=== PATIENT | female | born 1955 | race African-American/Black ===

== ENCOUNTER → 2016-07-19 | Outpatient (CLI) | payer MEDICAID | LOC: OD 12:27 | PROVIDERS: ATTEND Family Medicine | DX: M51.37 Other intervertebral disc degeneration, lumbosacral region (principal) | CPT/HCPCS: 72110 ==

== ENCOUNTER 2016-07-30 08:00 | Emergency (ER) | payer MEDICAID ==
[2016-07-30 11:46] VITALS: BP 144/79
--- NOTE | 2016-07-30 11:49 | ER Document Report ---
ED Extremity Problem, Upper - General Chief Complaint: Shoulder Pain Stated Complaint: RIGHT SIDE BODY PAIN Mode of Arrival: Ambulatory Information source: Patient Notes: 60 y/o F presents to ED c/o intermittently persistent pain to right arm over the last month. Pt reports paint to right shoulder and right upper arm which is worse with movement of shoulder and arm and she states radiates down the whole right side of her body. Denies obvious trauma or injury, chest pain or sob, n/v , diaphoresis, or extremity weakness/numbness/tingling. TRAVEL OUTSIDE OF THE [place] IN LAST 30 DAYS: No - HPI Patient complains to provider of: Pain, Right, Arm, Shoulder Recent injury: No Quality of pain: Achy, Sharp Severity of pain: Moderate Pain Level: 2 Associated symptoms: None Exacerbated by: Movement Relieved by: Positioning Similar symptoms previously: Yes Recently seen / treated by doctor: No - Related Data Allergies/Adverse Reactions: No Known Allergies Allergy (Verified 07/30/16 08:01) Past Medical History - General Information source: Patient - Social History Smoking Status: Never Smoker Chew tobacco use (# tins/day): No Frequency of alcohol use: sober for 7 yrs Drug Abuse: None Lives with: Family Family History: None, Reviewed & Not Pertinent Patient has suicidal ideation: No Patient has homicidal ideation: No - Past Medical History Cardiac Medical History: Reports: Hx Hypertension Pulmonary Medical History: Reports: Hx Asthma, Hx Bronchitis Endocrine Medical History: Reports: Hx Diabetes Mellitus Type 2 Renal/ Medical History: Denies: Hx Peritoneal Dialysis GI Medical History: Reports: Hx Cirrhosis, Hx Hepatitis - hep c Musculoskeltal Medical History: Reports Hx Arthritis Infectious Medical History: Reports: Hx Hepatitis - hep c Past Surgical History: Reports: Hx Hysterectomy - Immunizations Hx Diphtheria, Pertussis, Tetanus Vaccination: Yes Review of Systems - Review of Systems Constitutional: No symptoms reported EENT: No symptoms reported Cardiovascular: No symptoms reported Respiratory: No symptoms reported Gastrointestinal: No symptoms reported Genitourinary: No symptoms reported Female Genitourinary: No symptoms reported Musculoskeletal: See HPI Skin: No symptoms reported Hematologic/Lymphatic: No symptoms reported Neurological/Psychological: No symptoms reported -: Yes All other systems reviewed and negative Physical Exam - Vital signs Vitals: Temp Pulse Resp BP Pulse Ox 98.2 F 66 20 143/92 H 100 07/30/16 08:05 07/30/16 08:05 07/30/16 08:05 07/30/16 08:05 07/30/16 08:05 - General General appearance: Appears well, Alert In distress: None - HEENT Head: Normocephalic, Atraumatic Eyes: Normal Pupils: PERRL - Respiratory Respiratory status: No respiratory distress Chest status: Nontender Breath sounds: Normal Chest palpation: Normal - Cardiovascular Rhythm: Regular Heart sounds: Normal auscultation Murmur: No Pulses: Normal: Radial, Posterior tibial, Dorsalis pedis Normal capillary refill: Yes - Abdominal Inspection: Normal Distension: No distension Bowel sounds: Normal Tenderness: Nontender Organomegaly: No organomegaly - Back Back: Normal, Nontender - Extremities General upper extremity: Normal inspection, Nontender, Normal color, Normal ROM , Normal strength, Normal temperature. No: Edema General lower extremity: Normal inspection, Nontender, Normal color, Normal ROM , Normal strength, Normal temperature, Normal weight bearing. No: Edema, Ila' s sign Shoulder: Tender - Patient has diffuse tenderness with palpation to right shoulder and upper arm. Also reports painful range of motion. There is no swelling, erythema, bruising, discoloration, or crepitus. Patient has full active, passive, and against resistance range of motion of right arm and neurovascular function intact with immediate capillary refill and distal sensation intact.. No: Dislocation, Ecchymosis, Instability, Limited ROM Arm: Tender. No: Deformity, Ecchymosis, Instability Elbow: Normal, Nontender Forearm: Normal, Nontender Wrist: Normal, Nontender Hand: Normal, Nontender Hip: Normal, Nontender Thigh: Normal, Nontender Knee: Normal, Nontender Calf: Normal, Nontender Ankle: Normal, Nontender Foot: Normal, Nontender - Neurological Neuro grossly intact: Yes Cognition: Normal Orientation: AAOx4 [place] Coma Scale Eye Opening: Spontaneous [place] Coma Scale Verbal: Oriented [place] Coma Scale Motor: Obeys Commands [place] Coma Scale Total: 15 Speech: Normal Cranial nerves: Normal Cerebellar coordination: Normal Motor strength normal: LUE, RUE, LLE, RLE 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 Neurologically intact and physical exam aside from subjective tenderness is unremarkable. Patient winced initially with palpation and demonstrated painful range of motion however during examination while speaking with the patient she fixed her blankets with her right arm with full range of motion and did not complain of pain. No suggestion of neurovascular, cardiovascular, or other emergent etiology at this time. Patient appears stable for discharge and agrees with home care, follow-up with PCP, and ED return precautions. - Vital Signs Vital signs: Temp Pulse Resp BP Pulse Ox 98.0 F 60 20 144/79 H 100 07/30/16 11:44 07/30/16 11:44 07/30/16 11:44 07/30/16 11:44 07/30/16 11:44 - Diagnostic Test Radiology reviewed: Image reviewed, Reports reviewed Discharge - Discharge Clinical Impression: Right arm pain Condition: Stable Disposition: HOME, SELF-CARE Instructions: Arm Pain, Nonspecific ([facility]), Anti-Inflammatory Medication ([facility]) Additional Instructions: Follow-up with your primary care provider tomorrow. Return to the emergency department for any worsening symptoms or concerns. Prescriptions: Naproxen [Naprosyn 375 Mg Tablet] 375 mg PO BIDP PRN #10 tablet PRN Reason: Referrals: STEPHANIE MARTINEZ DO [Primary Care Provider] - Follow up tomorrow
== END 2016-07-30 11:56 | disposition home or self-care (01) ==
LOC: ER 08:00
DX: M79.601 Pain in right arm (principal); M25.511 Pain in right shoulder; I10 Essential (primary) hypertension; J45.909 Unspecified asthma, uncomplicated; E11.9 Type 2 diabetes mellitus without complications; Z86.19 Personal history of other infectious and parasitic diseases; Z90.710 Acquired absence of both cervix and uterus
CPT/HCPCS: 99283

== ENCOUNTER 2016-09-06 07:07 | Inpatient (IN) | payer MEDICAID ==
[2016-09-06] MEDS ORDERED: ONDANSETRON HCL INJ/PF 4 MG/2 ML SDV IV ONE (07:45)
[2016-09-06] MEDS ORDERED: MORPHINE SULFATE 10 MG/ML INJ IV ONE (07:45)
--- NOTE | 2016-09-06 07:55 | ER Document Report ---
ED General - General Mode of Arrival: Wheelchair Information source: Patient TRAVEL OUTSIDE OF THE [place] IN LAST 30 DAYS: No - HPI Onset: Other - 2 months Onset/Duration: Persistent Quality of pain: Achy Severity: Severe Pain Level: 5 Associated symptoms: Diarrhea, Vomiting Exacerbated by: Denies Relieved by: Denies Similar symptoms previously: Yes Recently seen / treated by doctor: Yes <MIRIAM GARCIA - Last Filed: 09/06/16 15:24> <JACE ABEL - Last Filed: 09/08/16 10:18> - General Chief Complaint: Abdominal Pain Stated Complaint: FLANK PAIN Time Seen by Provider: 09/06/16 07:28 Notes: Patient presents to emergency department with complaints of generalized abdominal pain for the past 2 months. She reports she has gallstones and is under the care of a surgeon but no surgery is scheduled. She reports she has another appointment September 13. Patient reports she has been vomiting and having diarrhea. Reports decreased appetite because she doesn't want to hurt. She reports she has not had anything to eat since noon yesterday due to the abdominal pain. She also reports both her arms are hurting and pain with void. Denies fever. Reports she hasn't been able to work for 2 months due to the pain. Reports history of diabetes asthma hypertension cirrhosis and hep C. ( MIRIAM GARCIA) - Related Data Allergies/Adverse Reactions: No Known Allergies Allergy (Verified 07/30/16 08:01) Past Medical History - General Information source: Patient Last Menstrual Period: hyst - Social History Smoking Status: Unknown if Ever Smoked Cigarette use (# per day): No Frequency of alcohol use: quit 5 years ago Drug Abuse: None Occupation: [employer] Lives with: Family - son Family History: None, Reviewed & Not Pertinent Patient has suicidal ideation: No Patient has homicidal ideation: No - Past Medical History Cardiac Medical History: Reports: Hx Hypertension Pulmonary Medical History: Reports: Hx Asthma, Hx Bronchitis Endocrine Medical History: Reports: Hx Diabetes Mellitus Type 2 Renal/ Medical History: Denies: Hx Peritoneal Dialysis GI Medical History: Reports: Hx Cirrhosis, Hx Hepatitis - hep c Musculoskeltal Medical History: Reports Hx Arthritis Infectious Medical History: Reports: Hx Hepatitis - hep c Past Surgical History: Reports: Hx Hysterectomy - Immunizations Hx Diphtheria, Pertussis, Tetanus Vaccination: Yes <MIRIAM GARCIA - Last Filed: 09/06/16 15:24> Review of Systems <MAURIZIO GARCIARICIA - Last Filed: 09/06/16 15:24> <DANGJACE - Last Filed: 09/08/16 10:18> - Review of Systems Notes: Review HPI for review of systems., All other systems negative (MIRIAM GARCIA) Physical Exam <MAURIZIO GARCIARICIA - Last Filed: 09/06/16 15:24> <JACE ABEL - Last Filed: 09/08/16 10:18> - Vital signs Vitals: Temp Pulse Resp BP Pulse Ox 98 F 95 18 166/107 H 99 09/06/16 07:22 09/06/16 07:22 09/06/16 07:22 09/06/16 07:22 09/06/16 07:22 - Notes Notes: PHYSICAL EXAMINATION: GENERAL: no acute distress HEAD: Atraumatic, normocephalic. EYES: Pupils equal round, extraocular movements intact, sclera anicteric, conjunctiva are normal. ENT: nares patent, oropharynx clear without exudates. Moist mucous membranes. NECK: Normal range of motion, supple without lymphadenopathy LUNGS: CTAB and equal. No wheezes rales or rhonchi. HEART: Regular rate and rhythm without murmurs ABDOMEN: Soft, round, no fluid wave, generalized tenderness, reports increased pain to RUQ, epigastric area. No guarding, no rebound BACK: Denies pain EXTREMITIES: Normal range of motion, no pitting edema. No cyanosis. NEUROLOGICAL: Cranial nerves grossly intact. Normal sensory/motor exams. PSYCH: Normal mood, normal affect. SKIN: Warm, Dry, normal turgor, no rashes or lesions noted (MIRIAM GARCIA) Course - Laboratory Result Diagrams: 09/06/16 08:00 09/06/16 08:00 - Diagnostic Test Radiology reviewed: Image reviewed, Reports reviewed - CT/CT ABD/PELVIS WITH IV ORAL IMPRESSION: Multiple gallstones. A small umbilical hernia is identified containing bowel without obstruction. Other findings as noted above US/U/S ABDOMEN COMPLETE W/O DOP IMPRESSION: 1. Cholelithiasis without acute cholecystitis. 2. Otherwise unremarkable abdominal ultrasound - Consults suhr Time consulted: :52 Consulted provider: will come to ER <MIRIAM GARCIA - Last Filed: 09/06/16 15:24> - Laboratory Result Diagrams: 09/07/16 15:35 09/07/16 15:35 <JACE ABEL - Last Filed: 09/08/16 10:18> - Re-evaluation Re-evalutation: 09/06/16 09:45 Per [facility] guidelines consulted dr abel regarding pt c/o,labs, hx and US. Advised to consult surgery, dr lee contacted. Pt remains NPO. no c/o at this time. 09/06/16 10:00 Dr Lee in the ED requested CT oral/iv contrast 09/06/16 14:[address] Lee contacted with CT results, he came to reassess the patient. Pt to be admitted for pancreatitis. 09/06/16 14:45 Pt aware of admission, denies questions. (MIRIAM GARCIA) - Vital Signs Vital signs: Temp Pulse Resp BP Pulse Ox 98.4 F 91 16 166/93 H 95 09/08/16 07:36 09/08/16 07:37 09/08/16 07:36 09/08/16 07:37 09/08/16 07:36 - Laboratory Laboratory results interpreted by nh: 09/06/16 09/06/16 09/06/16 08:00 08:00 08:00 MCH 26.9 L Sodium 145.5 H Calcium 10.8 H Total Protein 8.4 H Lipase 386.0 H Urine Protein 100 H - Consults [facility] Reason for consultation: 09/06/16 09:52 abdominal pain, hx gallstones, currently under care of [facility] for evaluation (MIRIAM GARCIA) Discharge - Discharge Admitting Provider: Surgicalist - [facility] Unit Admitted: Surgical Floor <MIRIAM GARCIA - Last Filed: 09/06/16 15:24> <JACE ABEL - Last Filed: 09/08/16 10:18> - Discharge Clinical Impression: Abdominal pain Qualifiers: Abdominal location: right upper quadrant Qualified Code(s): R10.11 - Right upper quadrant pain Pancreatitis Qualifiers: Chronicity: acute Pancreatitis type: unspecified pancreatitis type Acute pancreatitis complication: unspecified Qualified Code(s): K85.90 - Acute pancreatitis without necrosis or infection, unspecified
[2016-09-06 08:23] LABS: ABSOLUTE EOSINOPHILS # (AUTO) 0.2 10^3/uL (0.0-0.6); ABSOLUTE LYMPHOCYTES (AUTO) 1.7 10^3/uL (0.5-4.7); ABSOLUTE MONOCYTES (AUTO) 0.4 10^3/uL (0.1-1.4); ABSOLUTE NEUT (AUTO) 2.9 10^3/uL (1.7-8.2); BASOPHILS % (AUTO) 0.4 % (0-2); EOSINOPHILS % (AUTO) 3.1 % (0-6); HEMATOCRIT 36.5 % (36.0-47.0); HEMOGLOBIN 12.3 g/dL (12.0-15.5); HGB HCT DIFFERENCE 0.4; LYMPHOCYTES % (AUTO) 33.1 % (13-45); MEAN CORPUSCULAR HEMOGLOBIN 26.9 pg (27.0-33.4); MEAN CORPUSCULAR HGB CONC 33.8 g/dL (32.0-36.0); MEAN CORPUSCULAR VOLUME 80 fl (80-97); MONOCYTES % (AUTO) 7.2 % (3-13); RED BLOOD COUNT 4.59 10^6/uL (3.72-5.28); RED CELL DISTRIBUTION WIDTH 12.7 % (11.5-14.0); SEGMENTED NEUTROPHILS % (AUTO) 56.2 % (42-78); WHITE BLOOD COUNT 5.2 10^3/uL (4.0-10.5)
[2016-09-06 08:37] LABS: ALANINE AMINOTRANSFERASE 35 U/L (9-52); ALBUMIN 4.8 g/dL (3.5-5.0); ALKALINE PHOSPHATASE 98 U/L (38-126); ANION GAP 14 (5-19); ASPARTATE AMINO TRANSFERASE 36 U/L (14-36); BILIRUBIN,DIRECT 0.4 mg/dL (0.0-0.4); BILIRUBIN,TOTAL 0.7 mg/dL (0.2-1.3); BLOOD UREA NITROGEN 7 mg/dL (7-20); CALCIUM 10.8 mg/dL (8.4-10.2); CARBON DIOXIDE 27 mmol/L (22-30); CHLORIDE 105 mmol/L (98-107); CREATININE RESULT 0.63 mg/dL (0.52-1.25); GLUCOSE 91 mg/dL (75-110); POTASSIUM 3.7 mmol/L (3.6-5.0); SODIUM 145.5 mmol/L (137-145); TOTAL PROTEIN 8.4 g/dL (6.3-8.2)
[2016-09-06 08:55] LABS: AMORPHOUS SEDIMENT,URINE TRACE /HPF; APPEARANCE,URINE CLOUDY; BILIRUBIN,URINE NEGATIVE (NEGATIVE); GLUCOSE, URINE NEGATIVE (NEGATIVE); KETONES,URINE NEGATIVE (NEGATIVE); LEUKOCYTE ESTERASE,URINE NEGATIVE (NEGATIVE); NITRITE,URINE NEGATIVE (NEGATIVE); PROTEIN,URINE 100 mg/dL (NEGATIVE); URINE SPECIFIC GRAVITY 1.014; UROBILINOGEN,URINE NEGATIVE mg/dL (<2.0)
--- NOTE | 2016-09-06 10:36 | EKG REPORT ---
SEVERITY:- ABNORMAL ECG - SINUS RHYTHM PROBABLE LEFT ATRIAL ABNORMALITY LEFT VENTRICULAR HYPERTROPHY : Confirmed by: Shaniqua Jacobsen MD 06-Sep-2016 10:35:41
[2016-09-06 11:01] LABS: PROTHROMBIN TIME 13.8 SEC (11.4-15.4)
[2016-09-06 11:02] LABS: PARTIAL THROMBOPLASTIN TIME 35.2 SEC (23.5-35.8)
[2016-09-06] MEDS ORDERED: ONDANSETRON 4 MG TAB.RAPDIS PO PRN (14:38)
[2016-09-06] MEDS: NORMAL SALINE 1000 ML 1,000 ML IV PRN (15:29)
[2016-09-06] MEDS ORDERED: ENOXAPARIN SODIUM INJ 40 MG/0.4 ML DISP.SYRIN SUBCUT ONE (15:30)
[2016-09-06] MEDS ORDERED: VALSARTAN 160 MG TABLET PO ONE (21:45)
[2016-09-06] MEDS: FAMOTIDINE 20 MG TABLET PO SCH (21:58)
[2016-09-06] MEDS: HYDROMORPHONE HCL INJ/PF 2 MG/ML AMPULE IV PRN (23:56)
[2016-09-07] MEDS: NORMAL SALINE 1000 ML 1,000 ML IV PRN (03:46)
[2016-09-07] MEDS ORDERED: METOCLOPRAMIDE HCL INJ/PF 10 MG/2 ML SDV ONE (07:50)
[2016-09-07] MEDS ORDERED: ROCURONIUM BROMIDE INJ 50 MG/5 ML VIAL IV ONE (07:50)
[2016-09-07] MEDS ORDERED: GLYCOPYRROLATE INJ 0.4 MG/2 ML VIAL ONE (07:50)
[2016-09-07] MEDS ORDERED: SUCCINYLCHOLINE CHLORIDE INJ 200 MG/10 ML VIAL ONE (07:50)
[2016-09-07] MEDS ORDERED: LIDOCAINE 2% INJ-PF (20 MG/ML) 10 ML AMPUL ONE (07:50)
[2016-09-07] MEDS ORDERED: ONDANSETRON HCL INJ/PF 4 MG/2 ML SDV ONE (07:50)
[2016-09-07] MEDS ORDERED: NEOSTIGMINE METHYLSULFATE 10 MG/10 ML VIAL ONE (07:50)
[2016-09-07] MEDS ORDERED: ENOXAPARIN SODIUM INJ 40 MG/0.4 ML DISP.SYRIN SUBCUT SCH (08:00)
[2016-09-07] MEDS: FAMOTIDINE 20 MG TABLET PO SCH ×2 (09:24→21:31)
[2016-09-07] MEDS: HYDROMORPHONE HCL INJ/PF 2 MG/ML AMPULE IV PRN (09:24)
[2016-09-07] MEDS ORDERED: VALSARTAN 160 MG TABLET PO SCH (10:00)
[2016-09-07] MEDS ORDERED: BUPIVACAINE HCL 0.25 % INJ/PF (2.5 MG/1 ML) 30 ML VIAL ONE (10:27)
[2016-09-07] MEDS ORDERED: MIDAZOLAM 2 MG/2 ML INJ ONE (10:43)
[2016-09-07] MEDS ORDERED: FENTANYL CITRATE INJ/PF 250 MCG/5 ML AMPULE ONE (10:43)
[2016-09-07] MEDS ORDERED: PROPOFOL INJ 200 MG/20 ML VIAL IV ONE (10:44)
[2016-09-07] MEDS ORDERED: ACETAMINOPHEN 100 ML IV ONE (10:44)
[2016-09-07] MEDS ORDERED: MORPHINE SULFATE 10 MG/ML INJ ONE (10:44)
[2016-09-07] MEDS ORDERED: CEFAZOLIN INJ 1 GM VIAL ONE (11:25)
[2016-09-07] MEDS ORDERED: MORPHINE SULFATE 10 MG/ML INJ IV PRN (13:06)
[2016-09-07] MEDS ORDERED: ONDANSETRON HCL INJ/PF 4 MG/2 ML SDV IV PRN (13:10)
--- NOTE | 2016-09-07 13:13 | OPERATIVE REPORT E ---
Operative Report NAME: SIS REYES : 1955 AGE: 61Y DATE OF SURGERY: 09/07/2016 ROOM: 210 PREOPERATIVE DIAGNOSES: 1. Chronic calculus cholecystitis. 2. Gallstone pancreatitis. POSTOPERATIVE DIAGNOSES: 1. Chronic calculus cholecystitis. 2. Gallstone pancreatitis. PROCEDURE: Laparoscopic cholecystectomy. SURGEON: JULISA MIRANDA M.D. ANESTHESIA: General. INDICATION: This is a 61-year-old female who was noted to complain of severe abdominal pains. In the emergency room, her lipase was elevated, but the rest of liver functions were normal. Today, her pain subsided and her lipase decreased. Her abdomen is soft and nontender. She is going to have a laparoscopic cholecystectomy today. DESCRIPTION OF PROCEDURE: After adequate general anesthesia, the abdomen was then prepped and draped in the usual sterile fashion. After adequate timeout, the abdomen was then prepped and draped in the usual sterile fashion. Infraumbilical incision made and the fascia identified and grasped with Elías clamps and divided between the Elías clamps. The peritoneal cavity was then entered with a hemostat and a Britney trocar inserted through the fascia and into the abdominal cavity and CO2 insufflated through the trocar up a pressure of 15 mmHg. Three other trocars were placed; a 12 mm in the subxiphoid, and two 5 mm in the right upper quadrant. They were placed under direct vision. Next, the gallbladder was then identified. There were some adhesions around the gallbladder. These were lysed with the use of harmonic jaden. The liver was noted to be cirrhotic. Because of this, the gallbladder was taken out gently. Next, the cystic duct was then identified as well as the cystic artery. After the critical view was obtained, the cystic duct was then clipped with hemoclips and divided between the hemoclips. The cystic artery was then clipped with hemoclips and divided with the use of harmonic jaden. The gallbladder was then taken off the bed with the use of harmonic jaden. No significant bleeding was noted, although I initially ordered type of cross of her after visualizing the cirrhotic liver for the danger of bleeding that may be difficult to control. Fortunately, bleeding was not much and the gallbladder was then removed in an Endobag through the umbilical port. Gallbladder bed was then irrigated and no acute bleeding noted. A small piece of Surgicel was then placed at the operative site of the liver bed. Next, the trocars were removed and no acute bleeding along the trocar sites noted. The fascia defect at the infraumbilical area was then closed with a single [id number] suture using 0 Vicryl and also another suture of 0 Vicryl at the subxiphoid fascial defect. Next, all the skin incisions were then closed with running subcuticular closure using 4-0 Vicryl undyed. Dermabond dressing was used over the incisions. The patient tolerated the procedure well and brought to the recovery room in satisfactory condition. Needle, instrument, and sponge counts were all correct and estimated blood loss was minimal. DICTATING PHYSICIAN: JULISA MIRANDA M.D. [id number] PHY#: [id number] ID: [id number] JOB#: [id number] ACCT: [id number] cc:JULISA MIRANDA M.D. >
[2016-09-07 15:56] LABS: HEMATOCRIT 35.3 % (36.0-47.0); HEMOGLOBIN 11.7 g/dL (12.0-15.5); HGB HCT DIFFERENCE -0.2; MEAN CORPUSCULAR HEMOGLOBIN 26.8 pg (27.0-33.4); MEAN CORPUSCULAR HGB CONC 33.2 g/dL (32.0-36.0); MEAN CORPUSCULAR VOLUME 81 fl (80-97); RED BLOOD COUNT 4.37 10^6/uL (3.72-5.28); RED CELL DISTRIBUTION WIDTH 12.9 % (11.5-14.0); WHITE BLOOD COUNT 8.2 10^3/uL (4.0-10.5)
[2016-09-07 16:13] LABS: ALANINE AMINOTRANSFERASE 33 U/L (9-52); ALBUMIN 4.7 g/dL (3.5-5.0); ALKALINE PHOSPHATASE 121 U/L (38-126); ANION GAP 17 (5-19); ASPARTATE AMINO TRANSFERASE 37 U/L (14-36); BILIRUBIN,DIRECT 0.5 mg/dL (0.0-0.4); BILIRUBIN,TOTAL 0.8 mg/dL (0.2-1.3); BLOOD UREA NITROGEN 5 mg/dL (7-20); CALCIUM 10.4 mg/dL (8.4-10.2); CARBON DIOXIDE 25 mmol/L (22-30); CHLORIDE 101 mmol/L (98-107); CREATININE RESULT 0.59 mg/dL (0.52-1.25); GLUCOSE 83 mg/dL (75-110); POTASSIUM 3.2 mmol/L (3.6-5.0); SODIUM 142.8 mmol/L (137-145); TOTAL PROTEIN 8.6 g/dL (6.3-8.2)
[2016-09-07] MEDS ORDERED: HYDRALAZINE HCL INJ/PF 20 MG/1 ML SDV IV PRN (16:17)
--- NOTE | 2016-09-07 16:54 | PDOC CONSULTATION ---
Consultation Consult Date: 09/07/16 Attending physician:: JULISA MIRANDA Consult reason:: Management of hypertension History of Present Illness Admission Date/PCP: 09/06/16 14:38 STEPHANIE MARTINEZ DO Patient complains of: Abdominal pain History of Present Illness: SIS REYES is a 61 year old female with h/o hepatitis c and alcoholism in past but no etoh for past 5 years, presenting with several month history of diffuse abdominal pain. waxing and waning along with nausea. some diarrhea yesterday w/ subjective fever. No weight loss, no jaudice. No sob. no trauma. no signs of gi bleed. was told that she had cirrhosis but no known complications of cirrhosis. She had CT of the abdomen and pelvis showing multiple gallstones. She underwent lap cholecystectomy today. Post-operatively, she was started on diet, and maintained on IVF. BP was elevated but went to as high as 183 systolic. She is on diovan. Consult was made for management of HTN. Patient denies CP, SOB, N/V nor any pain at this time. She however reports taking 4 to 5 different anti-hypertensive meds. Past Medical History Past Medical History: Medication reconcillation pending verification from her pharmacist Cardiac Medical History: Reports: Hypertension Pulmonary Medical History: Reports: Asthma, Bronchitis Endocrine Medical History: Reports: Diabetes Mellitus Type 2 GI Medical History: Reports: Cirrhosis, Hepatitis - hep c Musculoskeltal Medical History: Reports: Arthritis Hematology: Reports: Anemia Infectious Medical History: Reports: Hepatitis C Past Surgical History Past Surgical History: Reports: Hysterectomy Social History Information Source: Patient Lives with: Family - son Smoking Status: Former Smoker Frequency of Alcohol Use: None - Former alcoholic. Hx Recreational Drug Use: No Drugs: None Hx Prescription Drug Abuse: No - Advance Directive Resuscitation Status: Full Code Family History Family History: Malignancy - prostate Parental Family History Reviewed: Yes Children Family History Reviewed: Yes Sibling(s) Family History Reviewed.: Yes Medication/Allergy Home Medications: Acetaminophen with Codeine [Tylenol #3 Tablet] 1 tab PO Q6HP PRN 09/06/16 Cefuroxime Axetil [Ceftin 500 mg Tablet] 500 mg PO Q12 09/06/16 Valsartan [Diovan] 320 mg PO DAILY 09/06/16 Allergies/Adverse Reactions: No Known Allergies Allergy (Verified 07/30/16 08:01) Review of Systems Constitutional: ABSENT: chills, fever(s), headache(s), night sweats, weight gain , weight loss Eyes: ABSENT: visual disturbances Ears: ABSENT: hearing changes Nose, Mouth, and Throat: ABSENT: mouth pain, sore throat Cardiovascular: ABSENT: chest pain, dyspnea on exertion, edema, orthropnea, palpitations Respiratory: ABSENT: cough, dyspnea, hemoptysis, sputum Gastrointestinal: PRESENT: abdominal pain - minimal from recent surgey. ABSENT : constipation, diarrhea, hematemesis, hematochezia, melena, nausea, vomiting Genitourinary: ABSENT: difficulty urinating, dysuria, hematuria Musculoskeletal: ABSENT: joint swelling Integumentary: ABSENT: rash, wounds Neurological: ABSENT: abnormal gait, abnormal speech, confusion, dizziness, focal weakness, syncope Psychiatric: ABSENT: anxiety, depression, homidical ideation, suicidal ideation Endocrine: ABSENT: cold intolerance, heat intolerance, polydipsia, polyuria Hematologic/Lymphatic: ABSENT: easy bleeding, easy bruising Physical Exam Vital Signs: Temp Pulse Resp BP Pulse Ox 97.9 F 72 17 165/82 H 98 09/07/16 16:29 09/07/16 16:29 09/07/16 16:29 09/07/16 16:29 09/07/16 16:29 Intake & Output 09/06/16 09/07/16 09/08/16 06:59 06:59 06:59 Intake Total 0 3430 Output Total 1300 Balance 0 2130 Weight 69 kg General appearance: PRESENT: no acute distress, cooperative Head exam: PRESENT: atraumatic, normocephalic Eye exam: PRESENT: conjunctiva pink, EOMI, PERRLA. ABSENT: scleral icterus Ear exam: PRESENT: normal external ear exam. ABSENT: drainage Mouth exam: PRESENT: moist, neck supple, tongue midline Neck exam: ABSENT: carotid bruit, JVD, lymphadenopathy, thyromegaly Respiratory exam: PRESENT: clear to auscultation tico. ABSENT: rales, rhonchi, wheezes Cardiovascular exam: PRESENT: RRR, +S1, +S2. ABSENT: diastolic murmur, gallop, rubs, systolic murmur Pulses: PRESENT: normal dorsalis pedis pul Vascular exam: PRESENT: normal capillary refill GI/Abdominal exam: PRESENT: hypoactive bowel sounds, soft, tenderness - minimal diffusely. ABSENT: distended, guarding, mass, organolmegaly, rebound Rectal exam: PRESENT: deferred Extremities exam: PRESENT: full ROM. ABSENT: calf tenderness, clubbing, pedal edema Neurological exam: PRESENT: alert, awake, oriented to person, oriented to place , oriented to time, oriented to situation Psychiatric exam: PRESENT: appropriate affect, normal mood. ABSENT: homicidal ideation, suicidal ideation Skin exam: PRESENT: dry, warm. ABSENT: cyanosis, rash Results Laboratory Results: 09/07/16 15:35 09/07/16 15:35 09/07/16 09/07/16 09/07/16 06:57 15:35 15:35 WBC 8.2 RBC 4.37 Hgb 11.7 L Hct 35.3 L MCV 81 MCH 26.8 L MCHC 33.2 RDW 12.9 Plt Count 159 Sodium 142.8 Potassium 3.2 L Chloride 101 Carbon Dioxide 25 Anion Gap 17 BUN 5 L Creatinine 0.59 Est GFR ( Amer) > 60 Est GFR (Non-Af Amer) > 60 Glucose 83 Calcium 10.4 H Total Bilirubin 0.8 AST 37 H ALT 33 Alkaline Phosphatase 121 Total Protein 8.6 H Albumin 4.7 Lipase 352.3 H Impressions: Abdomen Ultrasound 09/06/16 07:46 IMPRESSION: 1. Cholelithiasis without acute cholecystitis. 2. Otherwise unremarkable abdominal ultrasound. Abdomen/Pelvis CT 09/06/16 10:13 IMPRESSION: Multiple gallstones. A small umbilical hernia is identified containing bowel without obstruction. Other findings as noted above Assessment & Plan - Diagnosis (1) Chronic cholecystitis Is this a current diagnosis for this admission?: Yes (2) Gallstone pancreatitis Is this a current diagnosis for this admission?: Yes (3) Cholelithiasis Qualifiers: Cholecystitis presence: with cholecystitis Cholecystitis acuity: chronic Biliary obstruction: without biliary obstruction Is this a current diagnosis for this admission?: Yes (4) Essential hypertension Is this a current diagnosis for this admission?: Yes (5) Diabetes mellitus type 2 in nonobese Is this a current diagnosis for this admission?: Yes (6) Asthma Qualifiers: Asthma severity: unspecified severity Asthma complication type: uncomplicated Qualified Code(s): J45.909 - Unspecified asthma, uncomplicated Is this a current diagnosis for this admission?: Yes (7) Hepatitis C Qualifiers: Viral hepatitis chronicity: unspecified Hepatic coma status: without hepatic coma Qualified Code(s): B19.20 - Unspecified viral hepatitis C without hepatic coma Is this a current diagnosis for this admission?: Yes (8) Liver cirrhosis Qualifiers: Hepatic cirrhosis type: unspecified hepatic cirrhosis Ascites presence : without ascites Qualified Code(s): K74.60 - Unspecified cirrhosis of liver Is this a current diagnosis for this admission?: Yes - Time Time Spent: 50 to 70 Minutes - Plan Summary Plan Summary: Continue diovan. Give 40mg of IV lasix and PRN hydralazine. Obtain her medications from her pharmacy w/ [facility]. We will follow. Thank you for this consultation.
[2016-09-07] MEDS ORDERED: FUROSEMIDE INJ/PF 40 MG/4 ML SDV IV ONE (17:00)
[2016-09-07] MEDS: CEFAZOLIN 1 GM/D5W RTU 1 GM/50 ML RTUPB IV SCH (18:17)
[2016-09-07] MEDS: VALSARTAN 160 MG TABLET PO SCH (21:31)
[2016-09-07] MEDS: OXYCODONE-ACETAMINOPHEN 5-325 MG TABLET PO PRN (21:32)
[2016-09-08] MEDS: CEFAZOLIN 1 GM/D5W RTU 1 GM/50 ML RTUPB IV SCH ×2 (02:18→09:56)
[2016-09-08] MEDS: OXYCODONE-ACETAMINOPHEN 5-325 MG TABLET PO PRN ×2 (02:50→08:18)
--- NOTE | 2016-09-08 07:54 | PDOC PROGRESS REPORT ---
Subjective Progress Note for:: 09/08/16 Subjective:: No complains of pain, N/V/chills, fever, SOB nor CP. Physical Exam Vital Signs: Temp Pulse Resp BP Pulse Ox 98.4 F 91 16 166/93 H 95 09/08/16 07:36 09/08/16 07:37 09/08/16 07:36 09/08/16 07:37 09/08/16 07:36 Intake & Output 09/07/16 09/08/16 09/09/16 06:59 06:59 06:59 Intake Total 0 3910 Output Total 1300 Balance 0 2610 Weight 69 kg 69 kg General appearance: PRESENT: no acute distress, cooperative Head exam: PRESENT: normocephalic Eye exam: PRESENT: conjunctiva pink, EOMI Mouth exam: PRESENT: moist, neck supple Neck exam: ABSENT: JVD Respiratory exam: PRESENT: clear to auscultation tico. ABSENT: rhonchi, wheezes Cardiovascular exam: PRESENT: RRR. ABSENT: gallop GI/Abdominal exam: PRESENT: soft. ABSENT: distended Extremities exam: ABSENT: pedal edema Neurological exam: PRESENT: alert, awake, oriented to situation Skin exam: PRESENT: dry. ABSENT: cyanosis Results Laboratory Results: 09/07/16 15:35 09/07/16 15:35 09/07/16 09/07/16 09/07/16 06:57 15:35 15:35 WBC 8.2 RBC 4.37 Hgb 11.7 L Hct 35.3 L MCV 81 MCH 26.8 L MCHC 33.2 RDW 12.9 Plt Count 159 Sodium 142.8 Potassium 3.2 L Chloride 101 Carbon Dioxide 25 Anion Gap 17 BUN 5 L Creatinine 0.59 Est GFR ( Amer) > 60 Est GFR (Non-Af Amer) > 60 Glucose 83 Calcium 10.4 H Total Bilirubin 0.8 AST 37 H ALT 33 Alkaline Phosphatase 121 Total Protein 8.6 H Albumin 4.7 Lipase 352.3 H Blood Type Antibody Screen 09/07/16 15:35 WBC RBC Hgb Hct MCV MCH MCHC RDW Plt Count Sodium Potassium Chloride Carbon Dioxide Anion Gap BUN Creatinine Est GFR ( Amer) Est GFR (Non-Af Amer) Glucose Calcium Total Bilirubin AST ALT Alkaline Phosphatase Total Protein Albumin Lipase Blood Type O POSITIVE Antibody Screen NEGATIVE Impressions: Abdomen Ultrasound 09/06/16 07:46 IMPRESSION: 1. Cholelithiasis without acute cholecystitis. 2. Otherwise unremarkable abdominal ultrasound. Abdomen/Pelvis CT 09/06/16 10:13 IMPRESSION: Multiple gallstones. A small umbilical hernia is identified containing bowel without obstruction. Other findings as noted above Assessment & Plan - Diagnosis (1) Essential hypertension Is this a current diagnosis for this admission?: Yes (2) Chronic cholecystitis Is this a current diagnosis for this admission?: Yes (3) Gallstone pancreatitis Is this a current diagnosis for this admission?: Yes (4) Cholelithiasis Qualifiers: Cholecystitis presence: with cholecystitis Cholecystitis acuity: chronic Biliary obstruction: without biliary obstruction Is this a current diagnosis for this admission?: Yes (5) Diabetes mellitus type 2 in nonobese Is this a current diagnosis for this admission?: Yes (6) Asthma Qualifiers: Asthma severity: unspecified severity Asthma complication type: uncomplicated Qualified Code(s): J45.909 - Unspecified asthma, uncomplicated Is this a current diagnosis for this admission?: Yes (7) Hepatitis C Qualifiers: Viral hepatitis chronicity: unspecified Hepatic coma status: without hepatic coma Qualified Code(s): B19.20 - Unspecified viral hepatitis C without hepatic coma Is this a current diagnosis for this admission?: Yes (8) Liver cirrhosis Qualifiers: Hepatic cirrhosis type: unspecified hepatic cirrhosis Ascites presence : without ascites Qualified Code(s): K74.60 - Unspecified cirrhosis of liver Is this a current diagnosis for this admission?: Yes - Time Time Spent with patient: 15-24 minutes - Plan Summary Plan Summary: Resume home anti-hypertensive medications. Recommend D/C IVF and follow-up w/ primary physician in 2 weeks. We will sign off. Please reconsult us PRN. Thank you so much for letting us participate in her care.
[2016-09-08] MEDS: FAMOTIDINE 20 MG TABLET PO SCH (09:54)
[2016-09-08] MEDS: VALSARTAN 160 MG TABLET PO SCH (09:56)
[2016-09-08] MEDS ORDERED: PROPRANOLOL HCL 80 MG PO SCH (10:00)
[2016-09-08] MEDS ORDERED: CLONIDINE HCL 0.1 MG TABLET PO SCH (10:00)
[2016-09-08] MEDS ORDERED: HYDRALAZINE HCL 25 MG TABLET PO SCH (10:00)
[2016-09-08] MEDS ORDERED: AMLODIPINE BESYLATE 10 MG TABLET PO SCH (10:00)
[2016-09-08] MEDS: NORMAL SALINE 1000 ML 1,000 ML IV PRN (10:34)
[2016-09-08 11:50] VITALS: BP 128/76
--- NOTE | 2016-09-08 14:09 | DISCHARGE SUMMARY E ---
Discharge Summary NAME: SIS REYES : 1955 AGE: 61Y ADMITTED: 09/06/2016 DISCHARGED: 09/08/2016 PROCEDURE DONE: Laparoscopic cholecystectomy on 09/07/2016. FINAL DIAGNOSES: 1. Chronic calculous cholecystitis. 2. Gallstone pancreatitis. SUMMARY: This is a 61-year-old female who has been complaining of abdominal pains for the past few days. She had a CAT scan of the abdomen that showed gallstones and an ultrasound of the gallbladder also showed gallstones with no other evidence of gallbladder thickening or pericholecystic fluid. Her amylase on admission was 386 and this went down to 352 on the day of surgery. On 09/07/2016, she underwent laparoscopic cholecystectomy, which she did well. Her liver noted to be somewhat cirrhotic. She has a history of drinking until 5 years ago. She had hepatitis C and claims she is being followed by a tugboat mate for this. She is tolerating soft diet on the day of discharge and has passage of flatus. She was advised not to do any heavy lifting more than 10-15 pounds for the next 2 weeks and she can go back to work on 09/20/2016 for light duty for about 2 weeks, then no restrictions after that. She is supposed to be followed up in the [facility] in about 1-2 weeks. Prescription for Percocet was given p.r.n. for pain. DICTATING PHYSICIAN: JULISA MIRANDA M.D. [id number] PHY#: [id number] ID: [id number] JOB#: [id number] ACCT: [id number] cc:Samuel LAGUERRE N.P. >
--- NOTE | 2016-09-12 17:05 | PDOC H&P ---
History of Present Illness Admission Date/PCP: STEPHANIE MARTINEZ DO Patient complains of: abdominal pain History of Present Illness: SIS REYES is a 61 year old female with h/o hepatitis c and etohism in past but no etoh for past 5 years, presenting with several month history of diffuse abdominal pain. waxing and waning along with nausea. some diarreha yesterday. subjective fever. no weight loss, no jaudice. uncertain if food makes pain worse. sxs worsened in past several days. no sob. no trauma. no signs of gi bleed. was told that she had cirrhosis but no known complications of cirrhosis. Past Medical History Cardiac Medical History: Reports: Hypertension Pulmonary Medical History: Reports: Asthma, Bronchitis Endocrine Medical History: Reports: Diabetes Mellitus Type 2 GI Medical History: Reports: Cirrhosis, Hepatitis - hep c Musculoskeltal Medical History: Reports: Arthritis Hematology: Reports: Anemia Infectious Medical History: Reports: Hepatitis C Past Surgical History Past Surgical History: Reports: Hysterectomy Social History Lives with: Family - son Smoking Status: Unknown if Ever Smoked Family History Family History: None, Reviewed & Not Pertinent Parental Family History Reviewed: No Children Family History Reviewed: No Sibling(s) Family History Reviewed.: No Medication/Allergy Home Medications: Amlodipine Besylate [Norvasc 5 mg Tablet] 10 mg PO DAILY 03/05/11 Chlordiazepoxide HCl [Librium] 25 mg PO BID 03/05/11 Cyproheptadine HCl 4 mg PO DAILY 03/05/11 Furosemide [Lasix 40 mg Tablet] 20 mg PO QAM 03/05/11 Potassium Chloride [Klor-Con 10 Meq Tablet.sa] 20 meq PO DAILY 03/05/11 Tramadol HCl [Ultram 50 mg Tablet] 50 mg PO ASDIR PRN 03/05/11 Esomeprazole Mag Trihydrate [Nexium] 40 mg PO DAILY 06/02/11 Lactulose [Generlac] 30 ml PO DAILY 06/02/11 Megestrol Acetate 40 mg PO TID 06/02/11 Olopatadine HCl [Patanol 0.1% Oph Soln 5 Ml Bottle] 1 drop BID 06/02/11 Rifaximin [Xifaxan] 550 mg PO BID 06/02/11 Spironolactone [Aldactone] 50 mg PO DAILY 06/02/11 Lorazepam [Ativan 1 mg Tablet] 1 mg PO Q6HP PRN #12 tab 01/04/15 Oxycodone HCl 5 mg PO Q6 #20 tablet 01/29/15 Clonidine HCl 0.1 mg PO DAILY 02/24/16 Hydralazine HCl 25 mg PO DAILY 02/24/16 Hydralazine HCl 25 mg PO Q12 #60 tablet 02/24/16 Propranolol HCl [Propranolol HCl ER] 1 tab PO DAILY 02/24/16 Valsartan [Diovan] 1 tab PO DAILY 02/24/16 Naproxen [Naprosyn 375 Mg Tablet] 375 mg PO BIDP PRN #10 tablet 07/30/16 Allergies/Adverse Reactions: No Known Allergies Allergy (Verified 07/30/16 08:01) Physical Exam Vital Signs: Temp Pulse Resp BP Pulse Ox 98 F 95 18 166/107 H 99 09/06/16 07:22 09/06/16 07:22 09/06/16 07:22 09/06/16 07:22 09/06/16 07:22 Intake & Output 09/05/16 09/06/16 09/07/16 06:59 06:59 06:59 Weight 69.4 kg General appearance: PRESENT: no acute distress, cooperative Head exam: PRESENT: atraumatic Eye exam: PRESENT: conjunctiva pink Neck exam: PRESENT: other - supple, non tender Respiratory exam: PRESENT: clear to auscultation tico Cardiovascular exam: PRESENT: RRR GI/Abdominal exam: PRESENT: other - soft, protruberant, no hepatosplenomegaly, no stigmata of portal htn. diffuse abdominal tenderness with no peritoneal signs. Results Laboratory Results: 09/06/16 08:00 09/06/16 08:00 09/06/16 09/06/16 09/06/16 08:00 08:00 08:00 WBC 5.2 RBC 4.59 Hgb 12.3 Hct 36.5 MCV 80 MCH 26.9 L MCHC 33.8 RDW 12.7 Plt Count 158 Seg Neutrophils % 56.2 Lymphocytes % 33.1 Monocytes % 7.2 Eosinophils % 3.1 Basophils % 0.4 Absolute Neutrophils 2.9 Absolute Lymphocytes 1.7 Absolute Monocytes 0.4 Absolute Eosinophils 0.2 Absolute Basophils 0.0 Sodium 145.5 H Potassium 3.7 Chloride 105 Carbon Dioxide 27 Anion Gap 14 BUN 7 Creatinine 0.63 Est GFR ( Amer) > 60 Est GFR (Non-Af Amer) > 60 Glucose 91 Calcium 10.8 H Total Bilirubin 0.7 AST 36 ALT 35 Alkaline Phosphatase 98 Total Protein 8.4 H Albumin 4.8 Lipase 386.0 H Urine Color YELLOW Urine Appearance CLOUDY Urine pH 8.0 Ur Specific [place] 1.014 Urine Protein 100 H Urine Glucose (UA) NEGATIVE Urine Ketones NEGATIVE Urine Blood NEGATIVE Urine Nitrite NEGATIVE Ur Leukocyte Esterase NEGATIVE Urine WBC (Auto) 3 Urine RBC (Auto) 6 Impressions: Abdomen Ultrasound 09/06/16 07:46 IMPRESSION: 1. Cholelithiasis without acute cholecystitis. 2. Otherwise unremarkable abdominal ultrasound. Abdomen/Pelvis CT 09/06/16 10:13 IMPRESSION: Multiple gallstones. A small umbilical hernia is identified containing bowel without obstruction. Other findings as noted above Assessment & Plan - Diagnosis (1) Pancreatitis Is this a current diagnosis for this admission?: YesPlan: possible biliary since pt has gallstones. but unusual for lipase to be only mildly elevated. perhaps its on the tail end of episode. will admit, ivf, pancreatic rest with npo, check trig level. plan lap surya once pancreatitis settles down. pt with h/o cirrhosis (someone told her in the past) but no evidence by ct and labs and exam.
== END 2016-09-08 12:48 | disposition home or self-care (01) | DRG 417 ==
LOC: ER 07:07 → EH 14:38 → 2N 17:19
PROVIDERS: ADMIT Surgery; ATTEND Surgery
PROC: 0FT44ZZ Resection of Gallbladder, Percutaneous Endoscopic Approach (ICD-10-PCS; principal; 2016-09-07 10:30)
DX: K80.10 Calculus of gallbladder with chronic cholecystitis without obstruction (principal); K85.10 Biliary acute pancreatitis without necrosis or infection; B19.20 Unspecified viral hepatitis C without hepatic coma; F10.21 Alcohol dependence, in remission; I10 Essential (primary) hypertension; J45.909 Unspecified asthma, uncomplicated; E11.9 Type 2 diabetes mellitus without complications; M19.90 Unspecified osteoarthritis, unspecified site; D64.9 Anemia, unspecified; K74.60 Unspecified cirrhosis of liver; K42.9 Umbilical hernia without obstruction or gangrene; Z90.710 Acquired absence of both cervix and uterus; Z87.891 Personal history of nicotine dependence; Z79.899 Other long term (current) drug therapy; Z80.42 Family history of malignant neoplasm of prostate
CPT/HCPCS: 36415; 74177; 76700; 790; 80053; 81001; 82962; 83690; 84478; 85025; 85027; 85610; 85730; 86850; 86900; 86901; 86920; 88304; 93005; 93010; 96374; 96375; 99285; J0131; J0330; J0360; J0690; J1170; J1650; J1940; J2250; J2270; J2405; J2704; J2765; J3010; J3490; J7030

== ENCOUNTER 2016-11-23 01:21 | Emergency (ER) | payer MEDICAID ==
--- NOTE | 2016-11-23 03:33 | ER Document Report ---
ED General - General Chief Complaint: Blood Pressure Problem Stated Complaint: BLOOD PRESSURE PROBLEMS Time Seen by Provider: 11/23/16 03:12 Notes: Patient is a 61-year-old female with past medical history of essential hypertension, hyperlipidemia, hepatitis C who presents with concerns of elevated blood pressure. States that her primary care doctor did tell her to come to the emergency department due to her blood pressure being elevated. She does have chronically elevated blood pressure and is on 4 different medications for control. She denies any additional symptoms and denies any complaints other than her blood pressure being high. Notes that her blood pressure at work today was actually in the normal range at 139 and 62 but it became much higher when she came here to the emergency department. She has not noted anything other than going to doctors offices seems to raise her blood pressure. She states taking her medicines does seem to help the blood pressure. She denies any chest pain, shortness of breath, headache, weakness or numbness. TRAVEL OUTSIDE OF THE [place] IN LAST 30 DAYS: No - Related Data Allergies/Adverse Reactions: No Known Allergies Allergy (Verified 07/30/16 08:01) Past Medical History - General Information source: Patient - Social History Smoking Status: Former Smoker Frequency of alcohol use: None Drug Abuse: None Lives with: Family Family History: Reviewed & Not Pertinent Patient has suicidal ideation: No Patient has homicidal ideation: No - Past Medical History Cardiac Medical History: Reports: Hx Hypertension Pulmonary Medical History: Reports: Hx Asthma, Hx Bronchitis Neurological Medical History: Endocrine Medical History: Reports: Hx Diabetes Mellitus Type 2 Renal/ Medical History: Denies: Hx Peritoneal Dialysis GI Medical History: Reports: Hx Cirrhosis, Hx Hepatitis - hep c Musculoskeltal Medical History: Reports Hx Arthritis Infectious Medical History: Reports: Hx Hepatitis - hep c Past Surgical History: Reports: Hx Hysterectomy - Immunizations Hx Diphtheria, Pertussis, Tetanus Vaccination: Yes Review of Systems - Review of Systems Notes: Constitutional: Negative for fever. HENT: Negative for sore throat. Eyes: Negative for visual changes. Cardiovascular: Negative for chest pain. Respiratory: Negative for shortness of breath. Gastrointestinal: Negative for abdominal pain, vomiting or diarrhea. Genitourinary: Negative for dysuria. Musculoskeletal: Negative for back pain. Skin: Negative for rash. Neurological: Negative for headaches, weakness or numbness. 10 point ROS negative except as marked above and in HPI. Physical Exam - Vital signs Vitals: Temp Pulse Resp BP Pulse Ox 98.4 F 58 L 20 193/92 H 99 11/23/16 01:54 11/23/16 01:54 11/23/16 01:54 11/23/16 01:54 11/23/16 01:54 Interpretation: Hypertensive, Bradycardic Notes: PHYSICAL EXAMINATION: GENERAL: Well-appearing, well-nourished and in no acute distress. HEAD: Atraumatic, normocephalic. EYES: Pupils equal round and reactive to light, extraocular movements intact, sclera anicteric, conjunctiva are normal. ENT: nares patent, oropharynx clear without exudates. Moist mucous membranes. NECK: Normal range of motion, supple without lymphadenopathy LUNGS: Breath sounds clear to auscultation bilaterally and equal. No wheezes rales or rhonchi. HEART: Regular rate and rhythm without murmurs ABDOMEN: Soft, nontender, normoactive bowel sounds. No guarding, no rebound. No masses appreciated. EXTREMITIES: Normal range of motion, no pitting or edema. No cyanosis. NEUROLOGICAL: No focal neurological deficits. Moves all extremities spontaneously and on command. PSYCH: Normal mood, normal affect. SKIN: Warm, Dry, normal turgor, no rashes or lesions noted. Course - Re-evaluation Re-evalutation: 11/23/16 03:30 Presentation of asymptomatic hypertension. Patient denies any symptoms concerning for SAH, dissection, TN, or encephalopaty. Alert, oriented, and denies any symptoms at time of assessment. Normal neuro exam. Per [facility] policy guidelines, will therefore not obtain any labs or EKG at this time and will not initiate new BP treatment. I have discussed critical importance of follow up with PCP within 1 week and increased risk of devastating stroke, heart attack, respiratory distress, and other life threatening complications if blood pressure is not reduced appropriately. Diet and exercise habits also discussed. Patient will be discharged with return precautions and follow-up recommendations. - Vital Signs Vital signs: Temp Pulse Resp BP Pulse Ox 98.4 F 58 L 20 193/92 H 98 11/23/16 01:55 11/23/16 01:55 11/23/16 01:55 11/23/16 01:55 11/23/16 01:55 Discharge - Discharge Clinical Impression: Essential hypertension Condition: Good Disposition: HOME, SELF-CARE Additional Instructions: You were seen today for blood pressure that was high. This is a long-term risk factor for multiple medical problems including heart attack and stroke. However, the blood pressure in of itself will not cause you to have an acute stroke or heart attack over the course of just several days or weeks. You need to have a gradual reduction of your blood pressure back to normal levels over the next several months in conjunction with your primary care physician. Return if you develop headache, weakness, numbness, chest pain, pass out, or have any other symptoms that are concerning to you.
[2016-11-23 03:50] VITALS: BP 188/94
== END 2016-11-23 03:35 | disposition home or self-care (01) ==
LOC: ER 01:21
DX: I10 Essential (primary) hypertension (principal); Z79.899 Other long term (current) drug therapy; Z87.891 Personal history of nicotine dependence; J45.909 Unspecified asthma, uncomplicated; E11.9 Type 2 diabetes mellitus without complications
CPT/HCPCS: 99283

== ENCOUNTER 2017-02-12 22:47 | Emergency (ER) | payer MEDICAID ==
[2017-02-12] MEDS ORDERED: ONDANSETRON 4 MG TAB.RAPDIS PO ONE (23:32)
[2017-02-12 23:43] LABS: ABSOLUTE EOSINOPHILS # (AUTO) 0.2 10^3/uL (0.0-0.6); ABSOLUTE LYMPHOCYTES (AUTO) 1.7 10^3/uL (0.5-4.7); ABSOLUTE MONOCYTES (AUTO) 0.3 10^3/uL (0.1-1.4); BASOPHILS % (AUTO) 0.5 % (0-2); EOSINOPHILS % (AUTO) 2.5 % (0-6); HEMATOCRIT 35.5 % (36.0-47.0); HEMOGLOBIN 12.1 g/dL (12.0-15.5); HGB HCT DIFFERENCE 0.8; LYMPHOCYTES % (AUTO) 27.2 % (13-45); MEAN CORPUSCULAR HEMOGLOBIN 27.8 pg (27.0-33.4); MEAN CORPUSCULAR VOLUME 82 fl (80-97); MONOCYTES % (AUTO) 5.5 % (3-13); RED BLOOD COUNT 4.33 10^6/uL (3.72-5.28); RED CELL DISTRIBUTION WIDTH 15.1 % (11.5-14.0); SEGMENTED NEUTROPHILS % (AUTO) 64.3 % (42-78); WHITE BLOOD COUNT 6.1 10^3/uL (4.0-10.5)
--- NOTE | 2017-02-13 | ER Document Report ---
ED General - General Chief Complaint: High Blood Pressure Stated Complaint: NAUSEA Time Seen by Provider: 02/12/17 23:27 Notes: The patient is a 61-year-old female, past medical history hypertension, chronic back pain, psychiatric illnesses, presents with nausea and feelings of lightheadedness earlier today that have now resolved. She said that she only took 3 of her 4 blood pressure medications prior to arrival and was unable to take her trazodone tonight. Patient denies chest pain, shortness of breath, abdominal pain, vomiting, diarrhea, constipation, headache, focal weakness, numbness, blurry vision, syncope or fevers. TRAVEL OUTSIDE OF THE [place] IN LAST 30 DAYS: No - Related Data Allergies/Adverse Reactions: No Known Allergies Allergy (Verified 07/30/16 08:01) Past Medical History - General Information source: Patient - Social History Smoking Status: Current Every Day Smoker Family History: Reviewed & Not Pertinent Patient has suicidal ideation: No Patient has homicidal ideation: No - Past Medical History Cardiac Medical History: Reports: Hx Hypertension Pulmonary Medical History: Reports: Hx Asthma, Hx Bronchitis Neurological Medical History: Endocrine Medical History: Reports: Hx Diabetes Mellitus Type 2 Renal/ Medical History: Denies: Hx Peritoneal Dialysis GI Medical History: Reports: Hx Cirrhosis, Hx Hepatitis - hep c Musculoskeltal Medical History: Reports Hx Arthritis Infectious Medical History: Reports: Hx Hepatitis - hep c Past Surgical History: Reports: Hx Hysterectomy - Immunizations Hx Diphtheria, Pertussis, Tetanus Vaccination: Yes Review of Systems - Review of Systems Notes: REVIEW OF SYSTEMS: CONSTITUTIONAL: -fevers, -chills EENT: -eye pain, -difficulty swallowing, -nasal congestion CARDIOVASCULAR:-chest pain, -syncope. RESPIRATORY: -cough, -SOB GASTROINTESTINAL: -abdominal pain, +nausea, -vomiting, -diarrhea GENITOURINARY: -dysuria, -hematuria MUSCULOSKELETAL: -back pain, -neck pain SKIN: -rash or skin lesions. HEMATOLOGIC: -easy bruising or bleeding. LYMPHATIC: -swollen, enlarged glands. NEUROLOGICAL: -altered mental status or loss of consciousness, -headache, - neurologic symptoms PSYCHIATRIC: -anxiety, -depression. ALL OTHER SYSTEMS REVIEWED AND NEGATIVE. Physical Exam - Vital signs Vitals: Temp Pulse Resp BP Pulse Ox 98.1 F 86 18 186/101 H 98 02/12/17 22:53 02/12/17 22:53 02/12/17 22:53 02/12/17 22:53 02/12/17 22:53 - Notes Notes: PHYSICAL EXAMINATION: GENERAL: Well-appearing, well-nourished and in no acute distress. HEAD: Atraumatic, normocephalic. EYES: Pupils equal round and reactive to light, extraocular movements intact, sclera anicteric, conjunctiva are normal. ENT: nares patent, oropharynx clear without exudates. Moist mucous membranes. NECK: Normal range of motion, supple without lymphadenopathy LUNGS: Breath sounds clear to auscultation bilaterally and equal. No wheezes rales or rhonchi. HEART: Regular rate and rhythm without murmurs ABDOMEN: Soft, nontender, normoactive bowel sounds. No guarding, no rebound. No masses appreciated. EXTREMITIES: Normal range of motion, no pitting or edema. No cyanosis. NEUROLOGICAL: Cranial nerves grossly intact. Normal speech, normal gait. Normal sensory and motor exams. PSYCH: Normal mood, normal affect. SKIN: Warm, Dry, normal turgor, no rashes or lesions noted. Course - Re-evaluation Re-evalutation: Patient feels much better after Zofran and is tolerating fluids without nausea or vomiting. No abdominal pain. Patient provided with her evening dose of clonidine and hydralazine that she did not take tonight. Instructed her to follow-up with her primary care physician for further evaluation and treatment of her elevated blood pressure. Rest of labs are unremarkable. Given very strict return precautions and she understands. - Vital Signs Vital signs: Temp Pulse Resp BP Pulse Ox 98.1 F 86 18 191/111 H 98 02/12/17 22:53 02/12/17 22:53 02/12/17 22:53 02/13/17 01:21 02/12/17 22:53 - Laboratory Result Diagrams: 02/12/17 23:18 02/13/17 00:10 Laboratory results interpreted by me: 02/12/17 02/13/17 23:18 00:10 Hct 35.5 L RDW 15.1 H Plt Count 137 L Chloride 108 H Creatine Kinase 314 H Lipase 399.2 H - Diagnostic Test Radiology reviewed: Image reviewed, Reports reviewed Radiology results interpreted by me: CXR: NAD - EKG Interpretation by Me EKG shows normal: Sinus rhythm, [place], Intervals, QRS Complexes Rate: Normal When compared to previous EKG there are: No significant change Discharge - Discharge Clinical Impression: Nausea, Essential hypertension Condition: Stable Disposition: HOME, SELF-CARE Additional Instructions: HIGH BLOOD PRESSURE REQUIRING TREATMENT: Your blood pressure is high. This is called "hypertension." Today's reading was 180/100 (normal is less than 140/90). Your history and exam suggest that this is not a temporary problem. You need treatment of your blood pressure. If left untreated, high blood pressure greatly increases your risk of heart attack and stroke. Please don't ignore this problem. If you have blood pressure medicine but aren't using it regularly, start taking it again. Some simple things you can do to help are: Get some aerobic exercise for at least 20 minutes on a daily basis. (See your doctor before beginning any new exercise program.) Eat a low-fat diet. Lose excess weight. Avoid salty foods and avoid adding salt to any of the foods you eat. Avoid diet pills, decongestants, "energizing" herbs, and other medicines that elevate blood pressure. There are many different medicines that treat blood pressure. If your medication causes unpleasant side effects, call your doctor. There are others you can try. Treating hypertension is a life-long investment in your health. CLONIDINE (CATAPRES): Clonidine is blood-pressure medicine. It works in your brain, making the nervous system relax the blood vessels. This medicine can also be used for symptoms of narcotic withdrawal. Clonidine frequently causes dry mouth, drowsiness, and dizziness. These symptoms go away as you continue to use it. Rest for the first couple of days. Don't drive or use machinery until you're back to normal. Never stop clonidine suddenly! There can be a "rebound" severe increase in blood pressure, headache, and agitation. Be sure you always have enough of the medicine. Call the doctor if you have any new symptoms such as skin rash, weakness, severe lightheadedness, chest pain, headache, or depression. FOLLOW-UP CARE: If you have been referred to a physician for follow-up care, call the physician s office for an appointment as you were instructed or within the next two days. If you experience worsening or a significant change in your symptoms, notify the physician immediately or return to the Emergency Department at any time for re-evaluation. Forms: Elevated Blood Pressure
--- NOTE | 2017-02-13 00:28 | RADIOLOGY REPORT (SQ) ---
EXAM DESCRIPTION: CHEST SINGLE VIEW COMPLETED DATE/TIME: 02/12/2017 11:52 pm REASON FOR STUDY: SOB COMPARISON: 10/23/2015. EXAM PARAMETERS: NUMBER OF VIEWS: One view. TECHNIQUE: Single frontal radiographic view of the chest acquired. RADIATION DOSE: NA LIMITATIONS: None. FINDINGS: LUNGS AND PLEURA: No opacities, masses or pneumothorax. No pleural effusion. MEDIASTINUM AND HILAR STRUCTURES: No masses. Contour normal. HEART AND VASCULAR STRUCTURES: Heart normal in size. Normal vasculature. BONES: No acute findings. HARDWARE: None in the chest. OTHER: No other significant finding. IMPRESSION: NO ACUTE RADIOGRAPHIC FINDING IN THE CHEST. TECHNICAL DOCUMENTATION: JOB ID: [id number]
[2017-02-13 00:39] LABS: ALANINE AMINOTRANSFERASE 32 U/L (9-52); ALBUMIN 4.1 g/dL (3.5-5.0); ALKALINE PHOSPHATASE 69 U/L (38-126); ANION GAP 12 (5-19); ASPARTATE AMINO TRANSFERASE 22 U/L (14-36); BILIRUBIN,DIRECT 0.4 mg/dL (0.0-0.4); BILIRUBIN,TOTAL 0.5 mg/dL (0.2-1.3); BLOOD UREA NITROGEN 14 mg/dL (7-20); CALCIUM 10.2 mg/dL (8.4-10.2); CARBON DIOXIDE 25 mmol/L (22-30); CHLORIDE 108 mmol/L (98-107); CREATINE KINASE 314 U/L (30-135); CREATININE RESULT 0.95 mg/dL (0.52-1.25); GLUCOSE 101 mg/dL (75-110); LIPASE 399.2 U/L (23-300); POTASSIUM 3.8 mmol/L (3.6-5.0); SODIUM 144.6 mmol/L (137-145); TOTAL PROTEIN 7.2 g/dL (6.3-8.2)
[2017-02-13 01:23] LABS: TROPONIN I < 0.012 ng/mL
[2017-02-13 01:25] VITALS: BP 191/111
[2017-02-13] MEDS ORDERED: HYDRALAZINE HCL 25 MG TABLET PO ONE (01:35)
[2017-02-13] MEDS ORDERED: CLONIDINE HCL 0.1 MG TABLET PO ONE (01:35)
--- NOTE | 2017-02-13 23:11 | EKG REPORT ---
SEVERITY:- ABNORMAL ECG - SINUS RHYTHM PROBABLE LEFT ATRIAL ABNORMALITY BORDERLINE LEFT AXIS DEVIATION ABNORMAL T, CONSIDER ISCHEMIA, LATERAL LEADS VS LVH : Confirmed by: Kesha Corbett 13-Feb-2017 23:10:30
== END 2017-02-13 02:14 | disposition home or self-care (01) ==
LOC: ER 22:47
DX: I10 Essential (primary) hypertension (principal); R11.0 Nausea; R42 Dizziness and giddiness; J45.909 Unspecified asthma, uncomplicated; E11.9 Type 2 diabetes mellitus without complications; F17.200 Nicotine dependence, unspecified, uncomplicated; Z79.899 Other long term (current) drug therapy
CPT/HCPCS: 93005; 99284; 36415; 82550; 83690; 85025; 80053; 84484; 83880; 71010; 93010; J3490 ×2; S0119

== ENCOUNTER 2017-04-17 07:08 | Emergency (ER) | payer MEDICAID ==
--- NOTE | 2017-04-17 08:15 | ER Document Report ---
ED Extremity Problem, Lower - General Chief Complaint: Leg Pain Stated Complaint: LEG PAIN Time Seen by Provider: 04/17/17 07:34 Mode of Arrival: Ambulatory Information source: Patient Notes: Patient is a 61-year-old black female comes emergency room complaining of bilateral lower extremity pain. Patient starts off by saying that she is under a lot of stress that she is afraid her blood pressure is up because her son stresses her out and anytime she gets stressed her body hurts. She further states this lower extremity pain is not acute. She sees Dr. White and she receives injections in the back for the pain. She currently takes no pain medications for the discomfort. Patient also states she is a diabetic insulin- dependent and when asked states she does not know what her sugars run she just takes the insulin. Patient denies any loss of urine or stool. States that her legs were hurting so bad that she decided to go outside today and walk it off even though it was raining. A friend of hers saw her walking stopped and brought her to the emergency room. She also tells me that she has history of liver problems and cannot take Tylenol. Patient denies any new known trauma to causes discomfort. TRAVEL OUTSIDE OF THE [place] IN LAST 30 DAYS: No - HPI Patient complains to provider of: Pain, Other - With radiation down both legs posteriorly Location: Back, Buttock Occurred: Other - 3-4 weeks ago Where: Other - Unknown Onset/Duration: Gradual, Intermittent Quality of pain: Achy, Burning, Sharp Severity: Moderate Pain Level: 3 Context: denies: Barefoot, Burn, Crush, Direct blow, Fell, Laceration, Prolonged pressure on ext, Recent immobilization, Recent surgery, Recent travel , Stubbed, Twisted, Wearing shoes, Other Recent injury: No Associated symptoms: Painful ambulation Exacerbated by: Movement, Walking Relieved by: Nothing - Related Data Allergies/Adverse Reactions: No Known Allergies Allergy (Verified 04/17/17 08:06) Past Medical History - Social History Smoking Status: Never Smoker Cigarette use (# per day): No Chew tobacco use (# tins/day): No Smoking Education Provided: No Frequency of alcohol use: None Drug Abuse: None 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 Lives with: Family Family History: Reviewed & Not Pertinent Patient has suicidal ideation: No Patient has homicidal ideation: No - Past Medical History Cardiac Medical History: Reports: Hx Hypertension Pulmonary Medical History: Reports: Hx Asthma, Hx Bronchitis Neurological Medical History: Endocrine Medical History: Reports: Hx Diabetes Mellitus Type 2 Renal/ Medical History: Denies: Hx Peritoneal Dialysis GI Medical History: Reports: Hx Cirrhosis, Hx Hepatitis - hep c Musculoskeltal Medical History: Reports Hx Arthritis Infectious Medical History: Reports: Hx Hepatitis - hep c Past Surgical History: Reports: Hx Hysterectomy - Immunizations Hx Diphtheria, Pertussis, Tetanus Vaccination: Yes Review of Systems - Review of Systems Constitutional: No symptoms reported EENT: No symptoms reported Cardiovascular: No symptoms reported Respiratory: No symptoms reported Gastrointestinal: No symptoms reported Genitourinary: No symptoms reported Female Genitourinary: No symptoms reported Musculoskeletal: Back pain, Joint pain, Muscle pain Skin: No symptoms reported Hematologic/Lymphatic: No symptoms reported Neurological/Psychological: No symptoms reported -: Yes All other systems reviewed and negative Physical Exam - Vital signs Vitals: Temp Pulse Resp BP Pulse Ox 98.0 F 81 16 168/99 H 97 04/17/17 07:12 04/17/17 07:12 04/17/17 07:12 04/17/17 07:12 04/17/17 07:12 Interpretation: Hypertensive - General General appearance: Appears well, Anxious - HEENT Head: Normocephalic, Atraumatic Eyes: Normal Sinus: Normal Nasal: Normal Mouth/Lips: Normal Mucous membranes: Moist Pharynx: Normal Neck: Normal - Respiratory Respiratory status: No respiratory distress Chest status: Nontender Breath sounds: Normal Chest palpation: Normal - Cardiovascular Rhythm: Regular Heart sounds: Normal auscultation Murmur: No - Abdominal Inspection: Normal - Back Back: Tender, Vertebra tenderness, Other - Examination patient's lower extremities and back shows she has some mild reproducible paravertebral tenderness around L4-L5 area. There is no overt deformity or scoliosis noted on exam. Patient does have some mild tenderness bilateral buttocks to palpation. Notable more along the area of the sciatic notch. Palpation of this area also since some discomfort to the posterior thighs. Patient has negative straight leg raises at this time. And this is bilaterally. Patient has good strength to resistance moves. She has good DTRs. There is no swelling or edema noted in the lower extremities. Vascular exam is normal. Patient displays good 2+ dorsalis pedal pulses. - Extremities General upper extremity: Normal inspection, Normal ROM. No: Nontender, Tender, Edema, Normal color, Normal strength, Normal temperature, Other General lower extremity: Tender, Normal strength Shoulder: Normal, Nontender. No: Tender, Abrasion, Deformity, Dislocation, Ecchymosis, Instability, Laceration, Limited ROM, Other Forearm: Normal, Nontender. No: Tender, Abrasion, Deformity, Ecchymosis, Instability, Laceration, Other Hip: Tender, Other - Examination of patient's hips and pelvis area shows some mild tenderness as stated above in the back area that radiates to both hips. Discomfort is around the sciatic notches. There is no pain or discomfort on anterior palpation in the inguinal areas. There is no leg shortening or rotation of the lower extremities abnormally. Thigh: Tender, Other - As stated above. No: Normal, Nontender, Abrasion, Deformity, Dislocation, Ecchymosis, Instability, Laceration, Unable to bear weight Knee: Normal, Nontender Calf: Normal, Nontender. No: Tender, Abrasion, Deformity, Ecchymosis, Instability, Laceration, Unable to bear weight, Other Ankle: Normal, Nontender - Neurological Neuro grossly intact: Yes Cognition: Normal Orientation: AAOx4 [place] Coma Scale Eye Opening: Spontaneous Danette Coma Scale Verbal: Oriented Danette Coma Scale Motor: Obeys Commands Danette Coma Scale Total: 15 Speech: Normal Course - Vital Signs Vital signs: Temp Pulse Resp BP Pulse Ox 98.1 F 69 18 154/91 H 99 04/17/17 08:38 04/17/17 08:38 04/17/17 08:38 04/17/17 08:38 04/17/17 08:38 - Laboratory Laboratory results interpreted by me: 04/17/17 08:30 Urine Protein 100 H Urine Ascorbic Acid 40 H - Diagnostic Test Radiology reviewed: Reports reviewed - Plain films of the lumbar spine show disc space narrowing at approximately L4-L5. Patient's sugar maintained at 88. Her discomfort slightly improved with the Toradol shot. At this point patient is being seen by Dr. White on a regular basis for this lower extremity discomfort. We will place patient on little Mobic for a few days to see if this helps her out. She will follow-up with her primary doctor Cindy sometime this week or first the next. I have discussed in length with her about monitoring her blood sugars more closely. And she needs to remember to ask Dr. White for a Rx for another Accu-Chek monitor. Also explained to patient the hazards of taking insulin without checking her blood sugar. - Transfer of Care Notes: 04/17/17 08:22 Pursuing to the exam really feel patient at this time just has multiple somatic complaints secondary to her stress level with her family. She does mention more than once that the only thing she wanted for Re was peace and quiet , But she has been unable to even get that this year. She is being treated for this back problem by Dr. White with what appears to be epidurals by the patient. She states she does get some relief from the shots in the last time was 3 weeks ago. And as stated she denies any new traumatic events. Discharge - Discharge Clinical Impression: Sciatica associated with disorder of lumbar spine Low back pain Qualifiers: Chronicity: chronic Back pain laterality: bilateral Sciatica presence: with sciatica Sciatica laterality: bilateral sciatica Qualified Code(s): M54.42 - Lumbago with sciatica, left side; M54.41 - Lumbago with sciatica, right side; M54.41 - Lumbago with sciatica, right side; G89.29 - Other chronic pain; G89.29 - Other chronic pain Condition: Good Disposition: HOME, SELF-CARE Instructions: Low Back Pain ([facility]), Sciatica ([facility]) Additional Instructions: Home and rest. Ice to the low back 3 times a day or you may use moist heat. Medication as prescribed. I have given you a medication that is a good anti- inflammatory that will not hurt her liver. I am also given you a muscle relaxer to relieve the tension in her lower back to stop this from happening. Should you have any concerns or problems return to ER for recheck. I highly suggest that you follow-up with your primary doctor Cindy. I would contact his office tomorrow. Prescriptions: Cyclobenzaprine HCl [Flexeril 10 mg Tablet] 10 mg PO TIDP PRN #21 tablet PRN Reason: Meloxicam [Mobic] 7.5 mg PO DAILY #20 tablet Referrals: STEPHANIE WHITE DO [Primary Care Provider] - Follow up as needed
--- NOTE | 2017-04-17 08:27 | RADIOLOGY REPORT (SQ) ---
EXAM DESCRIPTION: L SPINE WHOLE COMPLETED DATE/TIME: 04/17/2017 8:15 am REASON FOR STUDY: low back pain with radiation down both legs COMPARISON: 02/17/2016. NUMBER OF VIEWS: Five views including obliques. TECHNIQUE: AP, lateral, oblique, and sacral radiographic images acquired of the lumbar spine. LIMITATIONS: None. FINDINGS: MINERALIZATION: Normal. SEGMENTATION: Normal. No transitional anatomy. ALIGNMENT: Normal. VERTEBRAE: Maintained height. No fracture or worrisome bone lesion. DISCS: Mild disc space narrowing at L4-L5. No significant osteophytes or end plate irregularity. POSTERIOR ELEMENTS: Pedicles and facets are intact. No pars defect or posterior arch defects. HARDWARE: None in the spine. PARASPINAL SOFT TISSUES: Normal. PELVIS: Intact as visualized. No fractures or worrisome bone lesions. SI joints intact. OTHER: No other significant finding. IMPRESSION: MILD DISC SPACE NARROWING AT L4-L 5. NO ACUTE FINDINGS. TECHNICAL DOCUMENTATION: JOB ID: [id number] [email or web address]- All Rights Reserved
[2017-04-17 08:51] LABS: AMORPHOUS SEDIMENT,URINE TRACE /HPF; APPEARANCE,URINE CLOUDY; BILIRUBIN,URINE NEGATIVE (NEGATIVE); GLUCOSE, URINE NEGATIVE (NEGATIVE); KETONES,URINE NEGATIVE (NEGATIVE); LEUKOCYTE ESTERASE,URINE NEGATIVE (NEGATIVE); NITRITE,URINE NEGATIVE (NEGATIVE); PROTEIN,URINE 100 mg/dL (NEGATIVE); URINE SPECIFIC GRAVITY 1.016; UROBILINOGEN,URINE NEGATIVE mg/dL (<2.0)
[2017-04-17] MEDS ORDERED: KETOROLAC TROMETHAMINE 60 MG/2 ML SDV IM ONE (09:01)
[2017-04-17 10:35] VITALS: BP 186/104
== END 2017-04-17 10:32 | disposition home or self-care (01) ==
LOC: ER 07:08
DX: G89.29 Other chronic pain (principal); M54.41 Lumbago with sciatica, right side; M54.42 Lumbago with sciatica, left side; E11.9 Type 2 diabetes mellitus without complications; Z79.4 Long term (current) use of insulin; I10 Essential (primary) hypertension; Z86.19 Personal history of other infectious and parasitic diseases; Z87.19 Personal history of other diseases of the digestive system
CPT/HCPCS: 99284; 96372; 82962; 81001; 72110; J1885

== ENCOUNTER → 2017-06-24 | Outpatient (CLI) | payer MEDICAID ==
--- NOTE | 2017-06-24 10:10 | WOMENS IMAGING REPORT ---
EXAM DESCRIPTION: U/S ABDOMEN TOTAL COMPLETED DATE/TIME: 06/24/2017 9:40 am REASON FOR STUDY: ABDOMINAL PAIN R10.84 GENERALIZED ABDOMINAL PAIN COMPARISON: None. TECHNIQUE: Dynamic and static grayscale images acquired of the abdomen and recorded on PACS. Additio nal selected color Doppler and spectral images recorded. LIMITATIONS: None. FINDINGS: PANCREAS: No masses. Visualized pancreatic duct normal caliber. LIVER: No masses. Echotexture normal. LIVER VASCULATURE: Normal directional flow of the main portal vein and hepatic veins. GALLBLADDER: Surgically absent. ULTRASOUND-DETECTED MARQUIS'S SIGN: Not applicable. INTRAHEPATIC DUCTS AND COMMON DUCT: CBD and intrahepatic ducts normal caliber. No filling defects. INFERIOR VENA CAVA: Normal flow. AORTA: No aneurysm. RIGHT KIDNEY: Normal size. Normal echogenicity. No solid or suspicious masses. No hydronephros is. No calcifications. LEFT KIDNEY: Normal size. Normal echogenicity. No solid or suspicious masses. No hydronephrosi s. No calcifications. SPLEEN: Normal size. No solid masses. PERITONEAL AND PLEURAL SPACES: No ascites or effusions. OTHER: No other significant finding. IMPRESSION: No acute findings in the abdomen. TECHNICAL DOCUMENTATION: JOB ID: [id number] [employer]- All Rights Reserved Reading location - IP/workstation name: [email or web address]
== END ==
LOC: WI 07:35
PROVIDERS: ATTEND Internal Medicine Gastroenterology
DX: R10.84 Generalized abdominal pain (principal)
CPT/HCPCS: 76700

== ENCOUNTER 2017-08-31 11:18 | Emergency (ER) | payer MEDICAID ==
[2017-08-31] MEDS ORDERED: CLONIDINE HCL 0.1 MG TABLET PO ONE (11:57)
--- NOTE | 2017-08-31 12:04 | ER Document Report ---
ED General - General Chief Complaint: General Weakness Stated Complaint: UNWELL Time Seen by Provider: 08/31/17 11:57 Notes: Patient says that she has been experiencing dizziness today, started while she was walking on the street to go to the store. She feels her blood pressure is high. She says that she has been losing weight for the past couple of weeks and saw her primary care provider about a week ago and he told her that it was okay. Patient has been having diarrhea for the past week. Says she is having abdominal pain and chest pains. Some difficulty breathing. No UTI symptoms. Denies fever. Patient says her sister was just killed in [place] last week and the family is making plans to travel there in the next day or 2. Patient has a history of cirrhosis of the liver diagnosed in 2009. She says she no longer drinks any alcohol and does not smoke. Has had a hysterectomy and a cholecystectomy. History of NIDDM, hypertension. No history of heart disease. TRAVEL OUTSIDE OF THE [place] IN LAST 30 DAYS: No - Related Data Allergies/Adverse Reactions: No Known Allergies Allergy (Verified 04/17/17 08:06) Past Medical History - Social History Smoking Status: Unknown if Ever Smoked Cigarette use (# per day): No Frequency of alcohol use: None Drug Abuse: None Family History: Reviewed & Not Pertinent Patient has suicidal ideation: No Patient has homicidal ideation: No - Past Medical History Cardiac Medical History: Reports: Hx Hypertension Pulmonary Medical History: Reports: Hx Asthma, Hx Bronchitis Neurological Medical History: Denies: Hx Cerebrovascular Accident Endocrine Medical History: Reports: Hx Diabetes Mellitus Type 2 GI Medical History: Reports: Hx Cirrhosis, Hx Hepatitis - hep c Musculoskeltal Medical History: Reports Hx Arthritis Infectious Medical History: Reports: Hx Hepatitis - hep c Past Surgical History: Reports: Hx Cholecystectomy, Hx Hysterectomy - Immunizations Hx Diphtheria, Pertussis, Tetanus Vaccination: Yes Review of Systems - Review of Systems Notes: REVIEW OF SYSTEMS: CONSTITUTIONAL : Denies fever. EENT: Denies eye, ear, nose or mouth or throat pain or other symptoms. CARDIOVASCULAR: Has occasional, nonspecific chest pain. RESPIRATORY: Denies cough, chest congestion, or shortness of breath. Sometimes has difficulty breathing. GASTROINTESTINAL: Denies abdominal pain or nausea, vomiting, but has had diarrhea for the past week. GENITOURINARY: Denies difficulty or painful urinating, urinary frequency, blood in urine. MUSCULOSKELETAL: Denies back or neck pain. Denies joint pain or swelling. SKIN: Denies rash or skin lesions. NEUROLOGICAL: Dizziness as mentioned in HPI. Denies LOC or altered mental status. Denies headache. Denies sensory loss or motor deficits. ALL OTHER SYSTEMS REVIEWED AND NEGATIVE. Physical Exam - Vital signs Vitals: Resp BP 18 205/121 H 08/31/17 11:28 08/31/17 11:28 Interpretation: Hypertensive - Patient does not remember if she took her blood pressure medications this morning. - Notes Notes: PHYSICAL EXAMINATION: GENERAL: Well-appearing, in no acute distress. Blood pressure elevated. Patient is not sure if she took her blood pressure medicines this morning. HEAD: Atraumatic, normocephalic. EYES: Pupils equal round and reactive to light, extraocular movements intact. ENT: oropharynx clear without exudates. Moist mucous membranes. NECK: Normal range of motion, supple. LUNGS: Breath sounds clear and equal bilaterally. HEART: Regular rate and rhythm without murmurs. ABDOMEN: Soft, nontender. No guarding or rebound. No masses. BACK: No tenderness throughout entire back. EXTREMITIES: Normal range of motion without pain. NEUROLOGICAL: Normal speech, normal gait. Normal sensory, motor, and reflex exams. Awake, alert, and oriented x3. PSYCH: Normal mood, normal affect. SKIN: Warm, dry, no rashes. Course - Re-evaluation Re-evalutation: 08/31/17 12:04 Patient was given clonidine 0.1 mg p.o. 08/31/17 13:01 Potassium was 3.0. Patient was given 40 mEq of KCl. 08/31/17 14:52 Blood pressure has come down. Patient thinks she might be on potassium at home but is not sure. - Vital Signs Vital signs: Temp Pulse Resp BP Pulse Ox 98.8 F 70 15 162/97 H 98 08/31/17 11:34 08/31/17 11:34 08/31/17 14:52 08/31/17 14:53 08/31/17 14:52 - Laboratory Result Diagrams: 08/31/17 11:30 08/31/17 11:30 Laboratory results interpreted by me: 08/31/17 08/31/17 11:30 12:16 Sodium 145.8 H Potassium 3.0 L* Calcium 10.5 H Urine Protein 100 H Urine Blood SMALL H Urine Urobilinogen 2.0 H - EKG Interpretation by Oh EKG shows normal: Sinus rhythm Rate: Normal Rhythm: NSR Voltage: Increased voltage, Consistant with LVH - Nonspecific T-wave inversions in the lateral precordial leads Discharge - Discharge Clinical Impression: Hypertension, Dizziness, Hypokalemia Condition: Stable Disposition: HOME, SELF-CARE Additional Instructions: DIZZINESS: Under normal circumstances, your sense of balance is controlled by a number of signals that your brain receives from several locations: Eyes. No matter what your position, visual signals help you determine where your body is in space and how it's moving. Sensory nerves. These are in your skin, muscles and joints. Sensory nerves send messages to your brain about body movements and positions. Inner ear. The organ of balance in your inner ear is the vestibular labyrinth. It includes loop-shaped structures (semicircular canals) that contain fluid and fine, hair-like sensors that monitor the rotation of your head. Near the semicircular canals are the utricle and saccule, which contain tiny particles called otoconia ([id number]). These particles are attached to sensors that help detect gravity and [id number]-mab-phsmd motion. Good balance depends on at least two of these three sensory systems working well. For instance, closing your eyes while washing your hair in the shower doesn't mean you'll lose your balance. Signals from your inner ear and sensory nerves help keep you upright. However, if your central nervous system can't process signals from all of these locations, if the messages are contradictory, or if the sensory systems aren't functioning properly, you may experience loss of balance. Dizziness may have a number of potential causes. These may include: Vertigo Vertigo - the false sense of motion or spinning - is the most common symptom of dizziness. Sitting up or moving around may make it worse. Sometimes vertigo is severe enough to cause nausea and vomiting. Vertigo usually results from a problem with the nerves and the structures of the balance mechanism in your inner ear (vestibular system), which sense movement and changes in your head position. Abnormal rhythmic eye movements ( nystagmus) almost always accompany vertigo. Causes of vertigo may include: Benign paroxysmal positional vertigo (BPPV). BPPV involves intense, brief episodes of vertigo associated with a change in the position of your head, often when you turn over in bed or sit up in the morning. It occurs when normal calcium carbonate crystals (otoconia) break loose and fall into the wrong part of the canals in your inner ear. When these particles shift, they stimulate sensors in your ear, producing an episode of vertigo. Doctors don't know what causes BPPV, but it may be a natural result of aging. Trauma to your head also may lead to BPPV. Inflammation in the inner ear. Signs and symptoms of inflammation of the inner ear (acute vestibular neuronitis or labyrinthitis) include sudden, intense vertigo that may persist for several days, with nausea and vomiting. It can be incapacitating, requiring bed rest to minimize the signs and symptoms. Fortunately, vestibular neuronitis generally subsides and clears up on its own. Recovery time may be shorter with vestibular rehabilitation exercises. Although the cause of this condition is unknown, it may be a viral infection. Meniere's disease. This disease involves the excessive buildup of fluid in your inner ear. It may affect adults at any age and is characterized by sudden episodes of vertigo lasting 30 minutes to an hour or longer. Other signs and symptoms include the feeling of fullness in your ear, buzzing or ringing in your ear (tinnitus), and fluctuating hearing loss. The cause of Meniere's disease is unknown. Vestibular migraine. People who experience a vestibular migraine are very sensitive to motion. Dizziness and vertigo caused by a vestibular migraine may be triggered by turning your head quickly, being in a crowded or confusing place , driving or riding in a vehicle, or even watching movement on TV. A vestibular migraine may cause feelings of imbalance or unsteadiness, hearing loss, "muffled " hearing, or ringing in your ears (tinnitus). For most people with a vestibular migraine, vertigo doesn't necessarily happen at the same time as the headache. Instead, typical migraine triggers may lead to vertigo without an actual migraine. Attacks of migrainous vertigo can last from a few minutes to several days. Acoustic neuroma. An acoustic neuroma (schwannoma) is a noncancerous (benign ) growth on the acoustic nerve, which connects the inner ear to your brain. Signs and symptoms of an acoustic neuroma may include dizziness, loss of balance , hearing loss and tinnitus. Rapid changes in motion. Riding on roller coasters or in boats, cars or even airplanes may on occasion make you dizzy. Other causes. Rarely, vertigo can be a symptom of a more serious neurological problem such as a stroke, brain hemorrhage or multiple sclerosis. Feeling of faintness (presyncope) "Presyncope" is the medical term for feeling faint and lightheaded without losing consciousness. Sometimes nausea, pale skin and a sense of dizziness accompany a feeling of faintness. Causes of presyncope include: Drop in blood pressure (orthostatic hypotension). A dramatic drop in your systolic blood pressure - the higher number in your blood pressure reading - may result in lightheadedness or a feeling of faintness. It can occur after sitting up or standing too quickly. Inadequate output of blood from the heart. Conditions such as partially blocked arteries (atherosclerosis), disease of the heart muscle (cardiomyopathy) , abnormal heart rhythm (arrhythmia) or a decrease in blood volume may cause inadequate blood flow from your heart. Loss of balance (disequilibrium) Disequilibrium is the loss of balance or the feeling of unsteadiness when you walk. Causes may include: Inner ear (vestibular) problems. Abnormalities with your inner ear can cause you to feel like you are floating, have a heavy head or are unsteady in the dark. Sensory disorders. Failing vision and nerve damage in your legs (peripheral neuropathy) are common in older adultsand may result in difficulty maintaining your balance. Joint and muscle problems. Muscle weakness and osteoarthritis - the type of arthritis that involves wear and tear of your joints - can contribute to loss of balance when it involves your weight-bearing joints. Medications. Loss of balance can be a side effect of certain medications, such as anti-seizure drugs, sedatives and tranquilizers. Lightheadedness and other kinds of dizziness Feeling lightheaded is the feeling of being "spaced out" or having the sensation of spinning inside your head. It can also give you the sensation that if your lightheadedness worsens, you might lose consciousness. Causes may include: Inner ear disorders. These abnormalities of your inner ear can lead to illusions of motion and make you feel like you're floating. Anxiety disorders. Certain anxiety disorders, such as panic attacks and a fear of leaving home or being in large, open spaces (agoraphobia), may cause lightheadedness. Hyperventilation. Abnormally rapid breathing that often accompanies anxiety disorders may make you feel lightheaded. Hypokalemia You have an abnormally decreased level of serum potassium. Hypokalemia may cause weakness, fatigue, or heart rhythm abnormalities. Sometimes there are no symptoms at all. Usually, low serum potassium is due to taking diuretics ( water pills). It can also be due to excessive vomiting or diarrhea. If no obvious cause is evident, further evaluation will be necessary. Treatment is usually oral potassium supplements. Take these exactly as prescribed. You may also want to select foods which are naturally high in potassium -- fruits (such as bananas, cantaloupe, grapes, oranges, prunes, tomatoes), fresh vegetables (potatoes, spinach, beans, peas), orange or tomato juice, tomato pasta sauce, milk, fish (halibut, tuna, salmon, sterling) A follow-up blood test is usually performed to assure that the potassium is returning to normal. Call the physician if you suffer severe weakness, muscle twitching or cramping, palpitations (pounding or irregular heartbeat), or any other new or alarming symptoms. Potassium A potassium-containing medication has been prescribed. This is usually used to treat potassium depletion caused by diuretics or by vomiting and diarrhea. This type of medicine is available in many forms, including elixirs, powders, fruity drinks, and pills. If one type is not working out for you, another can be substituted. Potassium can cause stomach upset. This can be prevented by taking it with meals. Do not take more than your doctor recommends. Notify your doctor if you develop repeated vomiting, black or bloody stool , severe weakness or numbness. Have your doctor check your potassium level at the end of next week, about a week from now. You may need to continue taking it or increase the dose or you may stop it, but your doctor needs to check your level to determine what to do. HIGH BLOOD PRESSURE REQUIRING TREATMENT: Your blood pressure is high. This is called "hypertension." Today's reading was (normal is less than 140/90). Your history and exam suggest that this is not a temporary problem. You need treatment of your blood pressure. If left untreated, high blood pressure greatly increases your risk of heart attack and stroke. Please don't ignore this problem. If you have blood pressure medicine but aren't using it regularly, start taking it again. Some simple things you can do to help are: Get some aerobic exercise for at least 20 minutes on a daily basis. (See your doctor before beginning any new exercise program.) Eat a low-fat diet. Lose excess weight. Avoid salty foods and avoid adding salt to any of the foods you eat. Avoid diet pills, decongestants, "energizing" herbs, and other medicines that elevate blood pressure. There are many different medicines that treat blood pressure. If your medication causes unpleasant side effects, call your doctor. There are others you can try. Treating hypertension is a life-long investment in your health. CLONIDINE (CATAPRES): Clonidine is blood-pressure medicine. It works in your brain, making the nervous system relax the blood vessels. This medicine can also be used for symptoms of narcotic withdrawal. Clonidine frequently causes dry mouth, drowsiness, and dizziness. These symptoms go away as you continue to use it. Rest for the first couple of days. Don't drive or use machinery until you're back to normal. Never stop clonidine suddenly! There can be a "rebound" severe increase in blood pressure, headache, and agitation. Be sure you always have enough of the medicine. Call the doctor if you have any new symptoms such as skin rash, weakness, severe lightheadedness, chest pain, headache, or depression. Continue to take your blood pressure medication as prescribed. Do not forget a dose. Have your doctor recheck your blood pressure in a week. FOLLOW-UP CARE: If you have been referred to a physician for follow-up care, call the physician s office for an appointment as you were instructed or within the next two days. If you experience worsening or a significant change in your symptoms, notify the physician immediately or return to the Emergency Department at any time for re-evaluation. Follow-up with your primary care doctor next week, when he returned from [place]. Prescriptions: Potassium Chloride 10 meq PO BID #15 tablet.er
[2017-08-31 12:36] LABS: ABSOLUTE EOSINOPHILS # (AUTO) 0.1 10^3/uL (0.0-0.6); ABSOLUTE LYMPHOCYTES (AUTO) 2.3 10^3/uL (0.5-4.7); ABSOLUTE MONOCYTES (AUTO) 0.4 10^3/uL (0.1-1.4); ABSOLUTE NEUT (AUTO) 3.9 10^3/uL (1.7-8.2); BASOPHILS % (AUTO) 0.4 % (0-2); EOSINOPHILS % (AUTO) 1.5 % (0-6); HEMATOCRIT 36.9 % (36.0-47.0); HEMOGLOBIN 12.4 g/dL (12.0-15.5); MEAN CORPUSCULAR HEMOGLOBIN 27.5 pg (27.0-33.4); MEAN CORPUSCULAR HGB CONC 33.6 g/dL (32.0-36.0); MEAN CORPUSCULAR VOLUME 82 fl (80-97); MONOCYTES % (AUTO) 5.6 % (3-13); PLATELET COUNT 190 10^3/uL (150-450); RED BLOOD COUNT 4.52 10^6/uL (3.72-5.28); RED CELL DISTRIBUTION WIDTH 12.9 % (11.5-14.0); SEGMENTED NEUTROPHILS % (AUTO) 58.5 % (42-78); TOTAL CELLS COUNTED % (AUTO) 100 %; WHITE BLOOD COUNT 6.6 10^3/uL (4.0-10.5)
[2017-08-31 12:51] LABS: ALANINE AMINOTRANSFERASE 21 U/L (9-52); ALBUMIN 4.2 g/dL (3.5-5.0); ALKALINE PHOSPHATASE 82 U/L (38-126); ANION GAP 14 (5-19); ASPARTATE AMINO TRANSFERASE 26 U/L (14-36); BILIRUBIN,DIRECT 0.3 mg/dL (0.0-0.4); BILIRUBIN,TOTAL 0.5 mg/dL (0.2-1.3); BLOOD UREA NITROGEN 11 mg/dL (7-20); CALCIUM 10.5 mg/dL (8.4-10.2); CARBON DIOXIDE 25 mmol/L (22-30); CHLORIDE 107 mmol/L (98-107); GLUCOSE 85 mg/dL (75-110); SODIUM 145.8 mmol/L (137-145); TOTAL PROTEIN 7.7 g/dL (6.3-8.2)
[2017-08-31 12:56] LABS: APPEARANCE,URINE SLIGHTLY-CLOUDY; BILIRUBIN,URINE NEGATIVE (NEGATIVE); COLOR,URINE YELLOW; GLUCOSE, URINE NEGATIVE (NEGATIVE); KETONES,URINE NEGATIVE (NEGATIVE); LEUKOCYTE ESTERASE,URINE NEGATIVE (NEGATIVE); NITRITE,URINE NEGATIVE (NEGATIVE); PROTEIN,URINE 100 mg/dL (NEGATIVE); URINE SPECIFIC GRAVITY 1.014
[2017-08-31 13:04] LABS: CREATINE KINASE MB 0.82 ng/mL (<4.55)
[2017-08-31 13:10] LABS: TROPONIN I < 0.012 ng/mL
[2017-08-31] MEDS ORDERED: POTASSIUM CHLORIDE 10 MEQ TABLET.SA PO ONE (14:45)
[2017-08-31 14:58] VITALS: BP 162/97
--- NOTE | 2017-08-31 15:53 | EKG REPORT ---
SEVERITY:- ABNORMAL ECG - SINUS RHYTHM LVH WITH SECONDARY REPOLARIZATION ABNORMALITY : Confirmed by: Anders Stallings MD 31-Aug-2017 15:52:37
== END 2017-08-31 15:05 | disposition home or self-care (01) ==
LOC: ER 11:18
DX: I10 Essential (primary) hypertension (principal); R42 Dizziness and giddiness; E87.6 Hypokalemia; R53.1 Weakness; J45.909 Unspecified asthma, uncomplicated; E11.9 Type 2 diabetes mellitus without complications
CPT/HCPCS: 93005; 99285; 36415; 82553; 83690; 85025; 80053; 81001; 84484; 93010; J3490

== ENCOUNTER → 2017-10-24 | Outpatient (CLI) | payer MEDICAID ==
--- NOTE | 2017-10-28 09:13 | WOMENS IMAGING REPORT ---
EXAM DESCRIPTION: BILAT SCREENING MAMMO W/CAD COMPLETED DATE/TIME: 10/24/2017 9:50 am REASON FOR STUDY: BILATERAL SCREENING MAMMO/Z12.31 Z12.31 ENCNTR SCREEN MAMMOGRAM FOR MALIGNANT GREGG PLASM OF SVETLANA COMPARISON: 04/27/2013 TECHNIQUE: Standard craniocaudal and mediolateral oblique views of each breast recorded using [employer] l acquisition. LIMITATIONS: None. FINDINGS: No masses, calcifications or architectural distortion. No areas of suspicion. Read with the assistance of CAD. .[facility] - R2 [employer] Version 1.3 .[facility] Imaging - R2 Cenova Version 1.3 .[facility] Imaging - R2 Cenova Version 2.4 .[facility] - R2 Cenova Version 2.4 .REPLACED BY [facility] - R2 [employer] Version 9.2 IMPRESSION: NORMAL MAMMOGRAM. BIRADS 1. BREAST DENSITY: c. The breasts are heterogeneously dense, which may obscure small masses. BIRAD: 1 NEGATIVE RECOMMENDATION: ROUTINE SCREENING Please continue yearly bilateral screening tomosynthesis in October 2018 COMMENT: The patient has been notified of the results by letter per SA requirements. Additional no tification policies are in place for contacting patient with suspicious or incomplete findings. Quality ID #[id number]: The [employer] recommends an annual screening mammogram for women aged 40 years or over. This facility utilizes a reminder system to ensure that all patients receive reminder letters, and/or direct phone calls for appointments. This includes reminders for routine scr eening mammograms, diagnostic mammograms, or other Breast Imaging Interventions when appropriate. Th is patient will be placed in the appropriate reminder system. The [employer] (A[employer]) has developed recommendations for screening MRI of the breast s in certain patient populations, to be used in conjunction with mammography. Breast MRI surveillanc e may be appropriate for women with more than 20% lifetime risk of developing breast cancer as deter mined by genetic testing, significant family history of the disease, or history of mantle radiation f or Hodgkins Disease. ACR Practice Guidelines 2008. TECHNICAL DOCUMENTATION: FINDING NUMBER: (1) ASSESSMENT: (1) JOB ID: [id number] [employer]- All Rights Reserved Reading location - IP/workstation name: [facility]-REPLACED BY [facility]-RR
== END ==
LOC: WI 09:34
PROVIDERS: ATTEND Family Medicine
DX: Z12.31 Encounter for screening mammogram for malignant neoplasm of breast (principal)
CPT/HCPCS: 77067

== ENCOUNTER 2017-11-05 05:32 | Emergency (ER) | payer MEDICAID ==
--- NOTE | 2017-11-05 07:17 | ER Document Report ---
ED General - General Chief Complaint: Pain All Over Stated Complaint: BODY PAIN Mode of Arrival: Ambulatory Information source: Patient TRAVEL OUTSIDE OF THE [place] IN LAST 30 DAYS: No - HPI Notes: 62-year-old female with a with a medical history of hypertension, type 2 diabetes, cirrhosis presents to the ED with complaints of lower back pain and right shoulder pain after she "took up the linoleum floor" 1 day ago. Reports pain is throbbing, sharp with movement. Has not tried any [id number] medications. Patient did not take her blood pressure medications this morning. Patient denies any trauma to her lower back or shoulder. Reports pain is "achy" and is sharp only with movement. Denies any loss of range of motion. Last bowel movement was late last night. Denies fevers, chills, chest pain, palpitations, shortness of breath, dyspnea, nausea, vomiting, diarrhea, abdominal pain, hematuria,blurred vision, double vision, loss of vision, speech changes, LH, dizziness, syncope, headaches, wheezing, ST, URI, neck pain, weakness, coffee-ground emesis or black tarry stool, bowel or bladder dysfunction, saddle anesthesia, numbness or tingling in bilateral upper or lower extremities equally, muscle paralysis, weakness in bilateral upper or lower extremities equally or rash. Denies IV drug use. - Related Data Allergies/Adverse Reactions: No Known Allergies Allergy (Verified 04/17/17 08:06) Past Medical History - General Information source: Patient - Social History Smoking Status: Never Smoker Chew tobacco use (# tins/day): No Frequency of alcohol use: None Drug Abuse: None Family History: Reviewed & Not Pertinent Patient has suicidal ideation: No Patient has homicidal ideation: No - Past Medical History Cardiac Medical History: Reports: Hx Hypertension Denies: Hx Coronary Artery Disease, Hx Heart Attack Pulmonary Medical History: Reports: Hx Asthma, Hx Bronchitis Neurological Medical History: Denies: Hx Cerebrovascular Accident Endocrine Medical History: Reports: Hx Diabetes Mellitus Type 2 Renal/ Medical History: Denies: Hx Peritoneal Dialysis GI Medical History: Reports: Hx Cirrhosis, Hx Hepatitis - hep c Musculoskeletal Medical History: Reports Hx Arthritis Infectious Medical History: Reports: Hx Hepatitis - hep c Past Surgical History: Reports: Hx Cholecystectomy, Hx Hysterectomy - Immunizations Hx Diphtheria, Pertussis, Tetanus Vaccination: Yes Review of Systems - Review of Systems Constitutional: No symptoms reported EENT: No symptoms reported Cardiovascular: No symptoms reported Respiratory: No symptoms reported Gastrointestinal: No symptoms reported Genitourinary: No symptoms reported Female Genitourinary: No symptoms reported Musculoskeletal: See HPI Skin: No symptoms reported Hematologic/Lymphatic: No symptoms reported Neurological/Psychological: No symptoms reported Physical Exam - Vital signs Vitals: Temp Pulse Resp BP Pulse Ox 98.5 F 59 L 16 190/101 H 100 11/05/17 05:40 11/05/17 05:40 11/05/17 05:40 11/05/17 05:40 11/05/17 05:40 - Notes Notes: PHYSICAL EXAMINATION: GENERAL: Well-appearing, well-nourished and in no acute distress. HEAD: Atraumatic, normocephalic. EYES: Pupils equal round and reactive to light, extraocular movements intact, conjunctiva are normal. ENT: Nares patent, oropharynx clear without exudates. Moist mucous membranes. NECK: Normal range of motion, supple without lymphadenopathy LUNGS: Breath sounds clear to auscultation bilaterally and equal. No wheezes rales or rhonchi. HEART: Regular rate and rhythm without murmurs ABDOMEN: Soft, nontender, nondistended abdomen. No guarding, no rebound. No masses appreciated. Female : Normal sphincter tone, no hemorrhoids or masses palpable Musculoskeletal: Normal range of motion, no pitting or edema. No cyanosis. Right shoulder pain with abduction and flexion at 50 degrees. no pain with supination, pronation, extension. negative , Adapted Physical Education Aide + 2 BUE equally. APROM in shoulder. DTR +2 in BUE equally. Noted crepitus with APROM in elbow. negative drop arm, neer sign, simon test bilaterally. slightly positive impingement sign all on right . No vascular compromise. Neck with full APROM, no cervical spinal tenderness. No tenderness over clavicles or step off noted bilaterally. Strength 5 out of 5 in bilateral upper extremities equally. Noted lumbar pain with flexion and extension at 40 degrees, positive straight leg test bilaterally. Normal hip rotation. DTR +2 in BLE equally. Strength 5 out of 5 both distally and proximally to bilateral lower extremities normal motor and sensory function in BLE equally. Distal pulses + 2 BLE equally. Noted paraspinal tenderness near L2 and L3 to left and right. No spinal tenderness. No CVA tenderness bilaterally. Femoral pulses + 2 bilaterally and equally. No abrasions, scars, lacerations, ecchymosis of any recent trauma. normal gait. NEUROLOGICAL: Cranial nerves grossly intact. Normal speech, normal gait. Normal sensory, motor exams PSYCH: Normal mood, normal affect. SKIN: Warm, Dry, normal turgor, no rashes or lesions noted. Course - Re-evaluation Re-evalutation: 62-year-old female, afebrile, who is hypertensive but not symptomatic after removing 2 days ago. X-ray right shoulder negative for any acute fracture dislocation. examination 5 out of 5 strength both distally and proximally bilateral lower extremities. 2+ patellar reflexes bilaterally. No clonus. Sensation grossly intact in the bilateral lower extremities. I suspects patient has musculoskeletal strain from the physical labor lifting silvia a days ago. No focal neurological deficits noted. Patient was given oral antihypertensive medications, after approximately 10 of hours, blood pressure did reduce to 155/82, patient remained stable. States her pain was relieved with Toradol shot. Pain was reduced to 1 out of 10. Patient did ask for a work note. patient is able to ambulate without difficulty. Advised patient to follow-up with orthopedically impaired teacher. Wear right shoulder sling as directed, instructions given to patient. After performing a Medical Screening Examination , I estimate there is LOW risk for EXPANDING OR RUPTURED ABDOMINAL AORTIC ANEURYSM, CAUDA EQUINA SYNDROME, EPIDURAL MASS ABSCESS OR LESION(S), OSTEOMYELITIS,PERSONAL HISTORY OF CANCER, IMMUNOSUPPERSSSION, HISTORY OF IV DRUG USE, FRACTURE, CORD COMPERSSION, CANCER, RETROPERITONEAL BLEED, SPINAL EPIDURAL HEMATOMA, or HERNIATED DISK CAUSING SEVERE SPINAL STENOSIS, thus I consider the discharge disposition reasonable. I have reevaluated this patient multiple times and no significant life threatening changes are noted. The patient and I have discussed the diagnosis and risks, and we agree with discharging home and close follow-up. We also discussed returning to the Emergency Department immediately if new or worsening symptoms occur with the understanding that symptoms and presentations can change. We have discussed the symptoms which are most concerning (e.g., saddle anesthesia, urinary or bowel incontinence or retention, changing or worsening pain) that necessitate immediate return. Presentation of a well appearing patient complaining of acute on chronic back pain. No rapid progression of symptoms, systemic symptoms including fevers, chills, weight loss, history of recent bacterial infection, bilateral symptoms, numbness, weakness, difficulty walking, urinary retention or bowel incontinence , personal history of cancer, immunosuppression, diabetes, known AAA, or history of IV drug use. Exam is without point tenderness over vertebral bodies , pulsatile abdominal mass, and patient has symmetric and intact lower extremity strength, sensation, and reflexes without clonus. 2+ symmetric medial malleolar and dorsalis pedis pulses Based on history and physical, I have a very low suspicion of a concerning etiology of pain including epidural compression syndrome, spinal infection, transverse myelitis, malignancy, abdominal aortic aneurysm, renal colic, acute lower extremity claudication, neurogenic claudication, ankylosing spondylitis, or other intra-abdominal process. Due to absence of concerning risk factors in history and physical as well as absence of rapidly progressive, severe, or bilateral symptoms, will defer imaging at this point. Plan to manage conservatively with outpatient analgesia, analgesia, and physical therapy. - Acetaminophen 650 q 4 + ibuprofen 600 q 6 - Continue normal daily activities as tolerated by pain - Provide with standard musculoskeletal back pain exercise instructions - Instruct to follow up with primary care provider if symptoms not improving - Provide careful return precautions and concerning symptoms to watch for. I have reevaluated this patient multiple times and no significant life threatening changes, no signs of toxicity, sepsis or peritonitis are noted. The patient and I have discussed the diagnosis and risks, and we agree with discharging home and close follow-up. We also discussed returning to the Emergency Department immediately if new or worsening symptoms occur with the understanding that symptoms and presentations can change. At this time will discharge with return precautions and follow-up recommendations. Verbal discharge instructions given a the bedside and opportunity for questions given. We have discussed the symptoms which are most concerning (e.g., saddle anesthesia, urinary or bowel incontinence or retention, changing or fever. Patient agree with plan of care, verbalized understanding of plan of care. Patient was discharged home without incident. 11/05/17 10:39 - Vital Signs Vital signs: Temp Pulse Resp BP Pulse Ox 98.2 F 64 16 196/98 H 95 11/05/17 06:40 11/05/17 06:40 11/05/17 05:40 11/05/17 09:43 11/05/17 06:40 - Laboratory Laboratory results interpreted by me: 11/05/17 09:40 Urine Blood SMALL H Discharge - Discharge Clinical Impression: Acute exacerbation of chronic low back pain Sprain of right shoulder Qualifiers: Encounter type: initial encounter Condition: Stable Disposition: HOME, SELF-CARE Instructions: Low Back Pain ([facility]), Chronic Back Pain ([facility]), Shoulder Injury ( [facility]), Exercise Program for the Shoulder ([facility]), Stretching Exercises for the Back ([facility]), Sling as Treatment ([facility]) Additional Instructions: You have been seen in the Emergency Department (ED) today for back pain. Your workup and exam have not shown any acute abnormalities and you are likely suffering from muscle strain or possible problems with your discs, but there is no treatment that will fix your symptoms at this time. Please take the naproxen that has been prescribed as directed. You should also purchase a local lidocaine cream such as "aspercreme with lidocaine" and use per bottle instructions to the affected area. Apply heat to the area as often as you are able. Continue to keep active and avoid prolonged periods of bed rest. Please follow up with your doctor as soon as possible regarding today's ED visit and your back pain. Return to the ED for worsening back pain, fever, weakness or numbness of either leg, or if you develop either (1) an inability to urinate or have bowel movements, or (2) loss of your ability to control your bathroom functions (if you start having "accidents"), or if you develop other new symptoms that concern you.concern you. Return immediately for any new or worsening symptoms. Follow-up with orthopedically impaired teacher and primary care provider within 3 days. Follow up with primary care provider, call tomorrow to make followup appointment. Forms: Return to Work Referrals: STEPHANIE MARTINEZ DO [Primary Care Provider] - Follow up in 3-5 days TA LAWS DO [ACTIVE STAFF] - Follow up in 3-5 days
[2017-11-05] MEDS ORDERED: KETOROLAC TROMETHAMINE 60 MG/2 ML SDV IM ONE (08:08)
[2017-11-05] MEDS ORDERED: CLONIDINE HCL 0.1 MG TABLET PO ONE (08:09)
[2017-11-05] MEDS ORDERED: VALSARTAN 160 MG TABLET PO ONE (08:10)
--- NOTE | 2017-11-05 08:38 | RADIOLOGY REPORT (SQ) ---
EXAM DESCRIPTION: SHOULDER RIGHT 2 OR MORE VIEWS COMPLETED DATE/TIME: 11/05/2017 8:31 am REASON FOR STUDY: sudden onset back pain after tearing up floor x1d COMPARISON: None. NUMBER OF VIEWS: Three views. TECHNIQUE: Internal rotation, external rotation, and Y view images acquired of the right shoulder. LIMITATIONS: None. FINDINGS: MINERALIZATION: Normal. BONES: No acute fracture or dislocation. No worrisome bone lesions. JOINTS: No dislocation. VISUALIZED LUNGS AND RIBS: No pneumothorax. No rib fracture. SOFT TISSUES: No radiopaque foreign body. OTHER: No other significant finding. IMPRESSION: NEGATIVE STUDY OF THE RIGHT SHOULDER. NO RADIOGRAPHIC EVIDENCE OF ACUTE INJURY. TECHNICAL DOCUMENTATION: JOB ID: [id number] [employer]- All Rights Reserved Reading location - IP/workstation name: [email or web address]
--- NOTE | 2017-11-05 08:39 | RADIOLOGY REPORT (SQ) ---
EXAM DESCRIPTION: L SPINE WHOLE COMPLETED DATE/TIME: 11/05/2017 8:31 am REASON FOR STUDY: sudden onset back pain after tearing up floor x1d COMPARISON: 04/17/2017 NUMBER OF VIEWS: Five views including obliques. TECHNIQUE: AP, lateral, oblique, and sacral radiographic images acquired of the lumbar spine. LIMITATIONS: None. FINDINGS: MINERALIZATION: Normal. SEGMENTATION: Normal. No transitional anatomy. ALIGNMENT: Normal. VERTEBRAE: Maintained height. No fracture or worrisome bone lesion. DISCS: Preserved height. No significant osteophytes or end plate irregularity. POSTERIOR ELEMENTS: Pedicles and facets are intact. No pars defect or posterior arch defects. HARDWARE: None in the spine. PARASPINAL SOFT TISSUES: Normal. PELVIS: Intact as visualized. No fractures or worrisome bone lesions. SI joints intact. OTHER: No other significant finding. IMPRESSION: NORMAL 5 VIEW LUMBAR SPINE. No interval change since the previous study. TECHNICAL DOCUMENTATION: JOB ID: [id number] [employer]- All Rights Reserved Reading location - IP/workstation name: [email or web address]
[2017-11-05 09:53] LABS: APPEARANCE,URINE CLEAR; BILIRUBIN,URINE NEGATIVE (NEGATIVE); COLOR,URINE STRAW; GLUCOSE, URINE NEGATIVE (NEGATIVE); KETONES,URINE NEGATIVE (NEGATIVE); LEUKOCYTE ESTERASE,URINE NEGATIVE (NEGATIVE); NITRITE,URINE NEGATIVE (NEGATIVE); PROTEIN,URINE NEGATIVE (NEGATIVE); URINE SPECIFIC GRAVITY 1.006; UROBILINOGEN,URINE NEGATIVE mg/dL (<2.0)
[2017-11-05 10:35] VITALS: BP 155/92
== END 2017-11-05 10:41 | disposition home or self-care (01) ==
LOC: ER 05:32
DX: S43.401A Unspecified sprain of right shoulder joint, initial encounter (principal); X58.XXXA Exposure to other specified factors, initial encounter; G89.29 Other chronic pain; M54.9 Dorsalgia, unspecified; M79.1 Myalgia; M54.2 Cervicalgia; M25.511 Pain in right shoulder; I10 Essential (primary) hypertension; E11.9 Type 2 diabetes mellitus without complications; Z90.49 Acquired absence of other specified parts of digestive tract; Z90.710 Acquired absence of both cervix and uterus
CPT/HCPCS: 99284; 96372; 81001; 72110; 73030; J3490 ×2; J1885

== ENCOUNTER 2018-02-05 16:40 | Emergency (ER) | payer MEDICAID, OTHER ==
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
[2018-02-05] MEDS ORDERED: LIDOCAINE 1% INJ-PF (10 MG/ML) 30 ML SDV INJ ONE (17:48)
[2018-02-05] MEDS ORDERED: LIDOCAINE 4%/TETRACAINE 0.5%/EPI 0.18% 5 ML TOPICAL SOLN TOP ONE (17:48)
[2018-02-05] MEDS ORDERED: AMLODIPINE BESYLATE 10 MG TABLET PO ONE (18:30)
[2018-02-05] MEDS ORDERED: CLONIDINE HCL 0.1 MG TABLET PO ONE (18:30)
[2018-02-05] MEDS ORDERED: VALSARTAN 160 MG TABLET PO ONE (18:35)
[2018-02-05 19:10] VITALS: BP 196/99
== END 2018-02-05 19:16 | disposition home or self-care (01) ==
LOC: ER 16:40
PROC: 0HQ0XZZ Repair Scalp Skin, External Approach (ICD-10-PCS; principal; 2018-02-05)
DX: S01.91XA Laceration without foreign body of unspecified part of head, initial encounter (principal); S16.1XXA Strain of muscle, fascia and tendon at neck level, initial encounter; V87.7XXA Person injured in collision between other specified motor vehicles (traffic), initial encounter; I10 Essential (primary) hypertension; J45.909 Unspecified asthma, uncomplicated; E11.9 Type 2 diabetes mellitus without complications; Z91.14 Patient's other noncompliance with medication regimen
CPT/HCPCS: 99284; 72050; 70450; 12001; J3490 ×3

== ENCOUNTER 2018-03-30 20:16 | Emergency (ER) | payer OTHER, MEDICAID ==
--- NOTE | 2018-03-30 21:29 | RADIOLOGY REPORT (SQ) ---
5 VIEWS OF THE LUMBAR SPINE HISTORY: Lower back pain. COMPARISON: 11/05/2017 FINDINGS: 5 non-rib bearing lumbar-type vertebra are present. There is normal alignment without static listhesis. The vertebral body heights and disc spaces are preserved. The SI joints are intact. No evidence of spondylolysis on the oblique views. IMPRESSION: No acute fracture or listhesis.
--- NOTE | 2018-03-30 21:32 | RADIOLOGY REPORT (SQ) ---
EXAM DESCRIPTION: XR SHOULDER 2 OR MORE VIEWS COMPLETED DATE/TME: 03/30/2018 20:44 CLINICAL HISTORY: 62 years, Female, right shoulder pain Findings: Bony alignment is anatomic. No fracture or dislocation. Acromion clavicular joint is in place. Soft tissues are unremarkable. IMPRESSION: No fracture.
[2018-03-30] MEDS ORDERED: PROPRANOLOL HCL 40 MG TABLET PO ONE (22:13)
[2018-03-30] MEDS ORDERED: CLONIDINE HCL 0.1 MG TABLET PO ONE (22:14)
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
[2018-03-30 22:55] VITALS: BP 179/99
== END 2018-03-30 22:30 | disposition home or self-care (01) ==
LOC: ER 20:16
DX: M25.511 Pain in right shoulder (principal); M54.5 Low back pain; I10 Essential (primary) hypertension; J45.909 Unspecified asthma, uncomplicated; E11.9 Type 2 diabetes mellitus without complications
CPT/HCPCS: 72110; 99283